=== PATIENT | male | born 1940 | race Caucasian/White ===

== ENCOUNTER 2018-06-22 10:24 | Emergency (ER) | payer MEDICARE, OTHER, SELFPAY ==
[2018-06-22 10:36] VITALS: BP 158/74; PULSE 64; RESP 16; TEMP 37.1; O2SAT 97
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
[2018-06-22 11:46] VITALS: BP 158/74; PULSE 64; RESP 16; TEMP 37.1; O2SAT 97
== END 2018-06-22 11:48 | disposition home or self-care (01) ==
LOC: ER 08-25 12:28
PROVIDERS: Emergency Provider Emergency Medicine; PCP Nurse Practitioner
DX: S40.012A Contusion of left shoulder, initial encounter (principal); V43.52XA Car driver injured in collision with other type car in traffic accident, initial encounter; I10 Essential (primary) hypertension
CPT/HCPCS: 73030; 99282; 99283

== ENCOUNTER 2018-07-29 00:23 | Outpatient (CLI) | payer MEDICARE, OTHER, SELFPAY ==
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
== END 2018-07-29 00:43 ==
PROVIDERS: PCP Nurse Practitioner; Visit Provider Nurse Practitioner
DX: R07.81 Pleurodynia (principal)
CPT/HCPCS: 71101

== ENCOUNTER → 2018-09-21 10:05 | Outpatient (BNVA) | payer MEDICARE, OTHER, SELFPAY | PROVIDERS: PCP Nurse Practitioner; Visit Provider Psychiatry & Neurology Neurology | DX: M48.061 Spinal stenosis, lumbar region without neurogenic claudication (principal); I10 Essential (primary) hypertension; R20.8 Other disturbances of skin sensation | CPT/HCPCS: 95885; 95909; 99205; 99215 ==

== ENCOUNTER 2019-04-07 08:24 | Outpatient (CLI) | payer MEDICARE, OTHER, SELFPAY ==
[2019-04-07 08:50] LABS: HCT 47.2 % (40.0-50.0); HGB 15.9 g/dL (13.5-17.5); Mean Corp. HGB Concentration 33.7 g/dL (32.0-36.0); Mean Corpuscular Hemoglobin 30.8 pg (27.0-33.0); Mean Corpuscular Volume 91.5 fL (80-95); Mean Platelet Volume 10.2 fL (8.0-11.0); Platelet Count 243 x1000/uL (130-400); RBC 5.16 m/cumm (4.50-6.00); RBC Distribution Width 13.6 % (11.8-14.1); White Blood Cell Count 5.41 k/cumm (4.4-10.8)
[2019-04-07 09:54] LABS: ALT 42 U/L (12-78); AST 25 U/L (15-37); Albumin 3.8 g/dL (3.4-5.0); Alkaline Phosphatase 66 U/L (46-116); Anion Gap 6.9 mmol/L (3-11); BUN 28 mg/dL (7-18); Bilirubin, Total 1.1 mg/dL (0.2-1.0); CO2 31.1 mmol/L (21.0-32.0); CREATININE 1.24 mg/dL (0.70-1.30); Calcium 8.8 mg/dL (8.5-10.1); Chloride 105 mmol/L (98-107); Cholesterol 119 mg/dL (50-200); Estimated GFR 56.24 (mL/min/1.73m2); Glucose 109 mg/dL (70-100); HDL Cholesterol 36 mg/dL (40-60); LDL CHOLESTEROL 65 mg/dL (<100); Potassium 5.5 mmol/L (3.5-5.1); Sodium 143 mmol/L (136-145); Total Protein 6.8 g/dL (6.4-8.2); Triglyceride 121 mg/dL (30-150)
== END 2019-04-07 08:44 ==
PROVIDERS: PCP Nurse Practitioner; Visit Provider Nurse Practitioner
DX: E78.5 Hyperlipidemia, unspecified (principal); I10 Essential (primary) hypertension; F32.9 Major depressive disorder, single episode, unspecified
CPT/HCPCS: 36415; 80053; 80061; 83721; 85027

== ENCOUNTER 2019-05-15 08:35 | Outpatient (CLI) | payer MEDICARE, OTHER, SELFPAY ==
[2019-05-15 10:25] LABS: Potassium 4.8 mmol/L (3.5-5.1)
== END 2019-05-15 08:55 ==
PROVIDERS: PCP Nurse Practitioner; Visit Provider Nurse Practitioner
DX: R79.89 Other specified abnormal findings of blood chemistry (principal)
CPT/HCPCS: 36415; 84132

== ENCOUNTER 2019-08-17 10:42 | Outpatient (CLI) | payer MEDICARE, OTHER, SELFPAY ==
[2019-08-17 12:49] LABS: ALT 39 U/L (16-63); AST 26 U/L (15-37); Albumin 3.8 g/dL (3.4-5.0); Alkaline Phosphatase 80 U/L (46-116); Anion Gap 6.9 mmol/L (3-11); BUN 20 mg/dL (7-18); Bilirubin, Total 1.1 mg/dL (0.2-1.0); CO2 31.1 mmol/L (21.0-32.0); CREATININE 1.25 mg/dL (0.70-1.30); Chloride 106 mmol/L (98-107); Estimated GFR 55.72 (mL/min/1.73m2); Glucose 101 mg/dL (70-100); Sodium 144 mmol/L (136-145); Total Protein 7.1 g/dL (6.4-8.2)
== END 2019-08-17 11:02 ==
PROVIDERS: PCP Nurse Practitioner; Visit Provider Nurse Practitioner
DX: I10 Essential (primary) hypertension (principal); I25.9 Chronic ischemic heart disease, unspecified
CPT/HCPCS: 36415; 80053

== ENCOUNTER 2019-09-05 07:49 | Outpatient (CLI) | payer MEDICARE, OTHER, SELFPAY | END 2019-09-05 08:09 | PROVIDERS: PCP Nurse Practitioner; Visit Provider Internal Medicine Cardiovascular Disease | DX: I25.10 Atherosclerotic heart disease of native coronary artery without angina pectoris (principal); Z95.5 Presence of coronary angioplasty implant and graft; I10 Essential (primary) hypertension; E78.5 Hyperlipidemia, unspecified | CPT/HCPCS: 99202; 99214; 93005; 93010 ==

== ENCOUNTER → 2019-09-28 09:10 | Outpatient (BNVA) | payer MEDICARE, OTHER, SELFPAY | PROVIDERS: PCP Nurse Practitioner; Referring Provider Nurse Practitioner; Visit Provider Internal Medicine Cardiovascular Disease | DX: I25.9 Chronic ischemic heart disease, unspecified (principal); I25.10 Atherosclerotic heart disease of native coronary artery without angina pectoris; I10 Essential (primary) hypertension | CPT/HCPCS: 99204; 99215 ==

== ENCOUNTER → 2020-01-08 10:44 | Outpatient (BNVA) | payer MEDICARE, OTHER, SELFPAY | PROVIDERS: PCP Nurse Practitioner; Referring Provider Nurse Practitioner; Visit Provider Internal Medicine Cardiovascular Disease | DX: I25.10 Atherosclerotic heart disease of native coronary artery without angina pectoris (principal); I10 Essential (primary) hypertension; Z79.899 Other long term (current) drug therapy | CPT/HCPCS: 99214 ==

== ENCOUNTER 2020-01-16 10:09 | Outpatient (CLI) | payer MEDICARE, OTHER, SELFPAY ==
[2020-01-16 11:38] LABS: Anion Gap 8.2 mmol/L (3-11); BUN 32 mg/dL (7-18); CO2 29.8 mmol/L (21.0-32.0); CREATININE 1.46 mg/dL (0.70-1.30); Calcium 7.9 mg/dL (8.5-10.1); Chloride 104 mmol/L (98-107); Estimated GFR 46.46 (mL/min/1.73m2); Glucose 124 mg/dL (74-106); Potassium 4.5 mmol/L (3.5-5.1); Sodium 142 mmol/L (136-145)
== END 2020-01-16 10:29 ==
PROVIDERS: PCP Nurse Practitioner; Visit Provider Internal Medicine Cardiovascular Disease
DX: I10 Essential (primary) hypertension (principal); Z79.899 Other long term (current) drug therapy
CPT/HCPCS: 36415; 80048

== ENCOUNTER → 2020-04-09 11:19 | Outpatient (BNVA) | payer MEDICARE, OTHER, SELFPAY | PROVIDERS: PCP Nurse Practitioner; Referring Provider Nurse Practitioner; Visit Provider Internal Medicine Cardiovascular Disease | DX: I25.9 Chronic ischemic heart disease, unspecified (principal); I10 Essential (primary) hypertension; E78.5 Hyperlipidemia, unspecified | CPT/HCPCS: 99214 ==

== ENCOUNTER → 2020-07-09 09:54 | Outpatient (BNVA) | payer MEDICARE, OTHER, SELFPAY | PROVIDERS: PCP Nurse Practitioner; Referring Provider Nurse Practitioner; Visit Provider Internal Medicine Cardiovascular Disease | DX: I25.9 Chronic ischemic heart disease, unspecified (principal); E78.5 Hyperlipidemia, unspecified; I10 Essential (primary) hypertension; Z95.818 Presence of other cardiac implants and grafts | CPT/HCPCS: 99213 ==

== ENCOUNTER 2021-01-02 03:23 | Outpatient (CLI) | payer MEDICARE, OTHER, SELFPAY ==
[2021-01-02 11:41] LABS: ALT 38 U/L (16-63); AST 22 U/L (15-37); Albumin 3.7 g/dL (3.4-5.0); Alkaline Phosphatase 72 U/L (46-116); BUN 30 mg/dL (7-18); Bilirubin, Total 0.9 mg/dL (0.2-1.0); CREATININE 1.5 mg/dL (0.70-1.30); Calcium 8.8 mg/dL (8.5-10.1); Calculated LDL 55 mg/dL (<100); Chloride 104 mmol/L (98-107); Cholesterol 129 mg/dL (<200); Estimated GFR 44.92 (mL/min/1.73m2); Glucose 83 mg/dL (74-106); HDL Cholesterol 37 mg/dL (40-60); Potassium 4.4 mmol/L (3.5-5.1); Sodium 143 mmol/L (136-145); Total Protein 7.1 g/dL (6.4-8.2); Triglyceride 185 mg/dL (<150)
== END 2021-01-02 03:24 | disposition home or self-care (01) ==
PROVIDERS: PCP Nurse Practitioner; Visit Provider Nurse Practitioner
DX: I10 Essential (primary) hypertension (principal); E78.5 Hyperlipidemia, unspecified; I25.9 Chronic ischemic heart disease, unspecified
CPT/HCPCS: 36415; 80053; 80061

== ENCOUNTER → 2021-01-06 10:57 | Outpatient (BNVA) | payer MEDICARE, OTHER, SELFPAY | PROVIDERS: PCP Nurse Practitioner; Referring Provider Nurse Practitioner; Visit Provider Internal Medicine Cardiovascular Disease | DX: I25.10 Atherosclerotic heart disease of native coronary artery without angina pectoris (principal); R06.02 Shortness of breath; E78.5 Hyperlipidemia, unspecified; I25.9 Chronic ischemic heart disease, unspecified; I10 Essential (primary) hypertension | CPT/HCPCS: 99214 ==

== ENCOUNTER 2021-01-06 12:15 | Outpatient (CLI) | payer MEDICARE, OTHER, SELFPAY ==
--- NOTE | 2021-01-21 15:08 | W.ZIOMONITOR ---
Date of service: 01/21/21 Time of Service: 15:08 14 Day Wafer Fabricator Referring Provider:: Shayy Poon Indications:: Shortness of breath Note: This is a 14-day monitor. Predominant rhythm was sinus with an average heart rate of 57. Minimum was 41, maximum 123 There were rare ventricular ectopic beats There were occasional atrial premature beats, rare atrial pairs. There was one 3 beat atrial run There was no atrial fibrillation, no high-grade AV block, no pauses greater than 3 seconds Patient triggered events corresponded to sinus rhythm and sinus bradycardia
== END 2021-01-06 12:16 | disposition home or self-care (01) ==
PROVIDERS: PCP Nurse Practitioner; Visit Provider Internal Medicine Cardiovascular Disease
DX: I25.10 Atherosclerotic heart disease of native coronary artery without angina pectoris (principal); R06.02 Shortness of breath; E78.5 Hyperlipidemia, unspecified; I25.9 Chronic ischemic heart disease, unspecified; I10 Essential (primary) hypertension
CPT/HCPCS: 93246; 99214

== ENCOUNTER 2021-01-21 15:08 | Outpatient (CLI) | payer MEDICARE, OTHER, SELFPAY | END 2021-01-21 15:09 | LOC: CARDO 01-22 10:26 | PROVIDERS: PCP Nurse Practitioner; Referring Provider Nurse Practitioner; Visit Provider Internal Medicine Cardiovascular Disease | DX: R06.02 Shortness of breath (principal); I49.3 Ventricular premature depolarization; I49.1 Atrial premature depolarization | CPT/HCPCS: 93248 ==

== ENCOUNTER → 2021-02-11 10:43 | Outpatient (BNVA) | payer MEDICARE, OTHER, SELFPAY | PROVIDERS: PCP Nurse Practitioner; Referring Provider Nurse Practitioner; Visit Provider Internal Medicine Cardiovascular Disease | DX: I10 Essential (primary) hypertension (principal); I25.10 Atherosclerotic heart disease of native coronary artery without angina pectoris; Z79.82 Long term (current) use of aspirin; R06.02 Shortness of breath | CPT/HCPCS: 99214 ==

== ENCOUNTER 2021-02-17 01:48 | Outpatient (CLI) | payer MEDICARE, OTHER, SELFPAY ==
--- NOTE | 2021-02-17 07:30 | DI.NM_ITS ---
APPROVED REPORT Exam: Pharmacologic Patient Location: Out-Patient Room/Bed: Stress Nurse: Francisca Sheffield RN Ordering Provider:WILLIAM MARES, Contact Number: [phone] BMI: 28.43 Baseline Rhythm: Sinus Bradycardia Comment: Minimal ST elevation leads V1-V4 Indications: Shortness of breath with exertion, chronic ischemic heart disease. Medical History Medical History: CAD, depression, gerd, hyperlipidemia, anxiety, hypertension, sob Cardiac Medications: simvastatin, lisinopril, hydrochlorothiazide, aspirin, carvedilol Allergies: Atrovastatin, penicillins Cardiac Risk Factors: Hypertension, hyperlipidemia, smoker (former), CVD, family hx Previous Cardiac Procedures: PCI w/ JOSE ELIAS Pretest Chest Pain Characteristics: None Exercise History: Sedentary Physical Disabilities: Legs and gait Lung Sounds: Clear to auscultation Heart Sounds: Regular Stress Test Details Test: Pharmacologic stress testing performed using 0.4 mg of regadenoson per 5 mL given IV over 10 s econds. Reason for pharmacologic stress test: physical limitation. Nuclear Acquisition: Rest Tc-99m/Stress Tc-99m 1 day Rest Isotope: Tc-99m Sestamibi. Dose: 10.2 Date: 02/17/2021 Injection Time: 0850 Stress Isotope: Tc-99m Sestamibi. Dose: 32.0 Date: 02/17/2021 Injection Time: 1012 HR Resting HR Supine: 47 bpm Max Heart Rate (APMHR): 139 bpm Target HR (85% APMHR): 118 bpm Max HR Achieved: 85 bpm % of APMHR: 61 Recovery HR: 62 bpm Comment: Carvedilol held for 24 hrs BP Resting BP Supine: 138/70 mmHg Max BP: 144/72 mmHg Recovery BP: 136/74 mmHg ECG Resting ECG: Sinus Bradycardia Ectopy: None Comment: Minimal ST elevation leads V1-V4 Stress ECG: Sinus Rhythm ST Change: Minimal ST elevation leads V1-V4 Arrhythmia: Frequent PACs Recovery ECG: Sinus Rhythm Recovery ST Change: Minimal ST elevation leads V1-V4 Clinical Stress Symptoms: Headache Rate Pressure Product: [id number] Stress ECG Conclusion 1. Resting electrocardiogram showed left anterior fascicular block, poor R wave progression 2. The patient underwent pharmacologic stress with regadenoson. Peak heart rate achieved was 62% of predicted 3. Electrocardiographically the test was nondiagnostic due to inadequate heart rate 4. Atrial premature beats were noted Stress Test Summary STAGE HR BP Symptoms NOTES Supine 47 138/70 1 min post Lexiscan injection 82 142/74 mild BALDERRAMA 3 min post Lexiscan injection 70 144/72 6 min post Lexiscan injection 62 136/74 mild BALDERRAMA improving MPI Conclusion Normal myocardial perfusion without evidence of ischemia or prior infarction EF with stress 47% Radiologist Interpretation Radiologist Interpretation by: Adrian Nettles MD Interpretation Date/Time: 02/18/2021 12:55:15
[2021-02-17] MEDS: Regadenoson 0.4 MG/5 ML SYR IVP (10:08)
== END 2021-02-17 02:08 ==
PROVIDERS: PCP Nurse Practitioner; Visit Provider Internal Medicine Cardiovascular Disease
DX: R06.02 Shortness of breath (principal); I25.89 Other forms of chronic ischemic heart disease; I10 Essential (primary) hypertension; E78.5 Hyperlipidemia, unspecified; Z87.891 Personal history of nicotine dependence; Z82.49 Family history of ischemic heart disease and other diseases of the circulatory system; I44.4 Left anterior fascicular block; I49.1 Atrial premature depolarization
CPT/HCPCS: 78452; 93016; 93018; 93017; J2785

== ENCOUNTER 2021-02-28 03:56 | Outpatient (CLI) | payer MEDICARE, OTHER, SELFPAY ==
--- NOTE | 2021-02-28 10:03 | DI.US_ITS ---
APPROVED REPORT EXAM: Comprehensive 2D, Doppler, and color-flow Echocardiogram Patient Location: Out-Patient Coat Finisher: Leeann Thompson RDCS (AE) Indications: Shortness of breath with exertion, Chronic ischemic heart disease Other Information Study Quality: Adequate Conclusion Normal left ventricular wall thickness and chamber size. Estimated ejection fraction is 60 to 65%. There are no segmental wall motion abnormalities Normal right ventricular size and systolic function Both atria are normal in size Trileaflet aortic valve without stenosis or regurgitation Mild mitral annular calcification. Trace mitral regurgitation Normal tricuspid valve with mild regurgitation. Estimated right ventricular systolic pressure is nor mal Normal pulmonic valve with mild regurgitation Mildly dilated ascending aorta measuring 3.6 cm Wall motion Left Ventricle The left ventricle is normal size. The left ventricular systolic function is normal. The left ventric ular ejection fraction is within the normal range. There is normal left ventricular wall thickness. T here is normal LV segmental wall motion. There is no ventricular septal defect visualized. Left ventr icular thrombus is present. LVEF is 60-65%. Right Ventricle The right ventricle is normal size. The right ventricular systolic function is normal. The RVSP is 24 .2mmHg. Atria The left atrium size is normal. The right atrium size is normal. The interatrial septum is intact wit h no evidence for an atrial septal defect. Aortic Valve The aortic valve is normal in structure. Aortic valve is trileaflet. There is no aortic valvular sten osis. No aortic regurgitation is present. Mitral Valve Mild mitral annular calcification. No evidence of mitral valve stenosis. Trace mitral regurgitation. Tricuspid Valve The tricuspid valve is normal in structure. There is no tricuspid valve stenosis. Mild tricuspid regu rgitation. Pulmonic Valve The pulmonary valve is normal in structure. There is no pulmonic valvular stenosis. Mild pulmonic reg urgitation. Great Vessels The aortic root is normal in size. The ascending aorta is mildly dilated. Aortic arch is not well vi sualized. IVC is normal in size and collapses >50% with inspiration. Pericardium There is no pericardial effusion. 2D Dimensions IVSD d PLAX 1.00 cm M: 0.6-1.2 LV Vol A2C d MOD 114.5 mL LVPW d PLAX 1.01 cm M: 0.6 - 1.2 LV Vol A4C d MOD 108.1 mL LVID d PLAX 4.42 cm M: 4.2 - 5.8 LA vol/ BSA A2C s A-L 22.6 mL/m2 LVDs 2.85 cm M: 2.5 - 4.0 LA vol/ BSA A4C s A-L 19.3 mL/m2 Ao Root d 3.50 cm M: 3.1 - 3.7 LA Vol/ BSA Biplane s A-L 22.3 mL/m2 RA Area A4C 14.09 cm2 LA Area A4C s MOD 15.58 cm2 RA Vol/ BSA A4C s A-L 16.4 mL/m2 LA Area A2C s MOD 17.96 cm2 Ao Asc Diam d 3.60 cm M: 2.6 - 3.4 LV EF A4C MOD 61.2 % LV EF Teichholz 64.4 % LV EF A2C MOD 64.3 % LVEF (La's) 60.58 % M: 52 - 72 LV EF Biplane MOD 60.6 % LV Volume 82.67 mL M: 62 - 150 SV 67.29 mL LV Volume Index 40.52 mL/m2 M: 34 - 74 SV Index 32.88 mL/m2 LV Vol Biplane MOD 111.1 mL FS 34.90 % M-Mode TAPSE 2.52 cm (M/F) >1.7 LV Diastology MV E' medial 0.067 (>0.07 m/s) E/A Ratio 0.8 LV E/e MED 9.50 (<14) MV E Vmax 0.64 (0.4-1.3 m/s) MV E' lateral 0.104 (>0.1 m/s) MV A Vmax 0.85 (0.4-1.3 m/s) LV E/e LAT 6.05 (<14) MV E/A Ratio 0.74 MV E/E' medial 9.51 MV E/E' lateral 6.09 Aortic Valve LVOT Area 3.02 cm2 AoV Area Vmax 2.10 cm2 LVOT Vmax 0.94 m/s AoV Area/ BSA (Vmax) 1.03 cm2/m2 LVOT Mean Tarun. 0.57 m/s TISH Mean Tarun. 2.00 cm2 LVOT Peak Grad 3.6 mmHg TISH Mean Tarun. Index 0.98 cm2/m2 LVOT Mean Grad 1.6 mmHg LVOT VTI 0.233 m LVOT Diam s 1.95 cm AoV Vmax 1.36 m/s Velocity Ratio 0.69 AoV Mean Tarun. 0.86 m/s AoV Peak Grad 7.4 mmHg LVOT SV 70.37 mL AoV Mean Grad 3.5 mmHg AoV VTI 0.286 m AoV Area VTI 2.46 cm2 AoV Area/ BSA (VTI) 1.20 cm/m2 Mitral Valve MV DT 181 (160-240 msec) MV PHT 52 msec MV Area PHT 4.19 cm2 Pulmonary Valve PV Vmax 1.09 (0.5-1.5 m/s) RVOT Peak Gr. 1.13 mmHg PV Peak Grad 4.7 mmHg RVOT Mean Gr. 0.60 mmHg PV Mean Grad 2.3 mmHg RVOT VTI 0.136 m PV VTI 0.240 m RVOT Vmax 0.53 m/s Tricuspid Valve TR Peak Grad 21.2 mmHg TR Vmax 2.30 m/s RA Pressure 3.00 mmHg RVSP (TR) 24.2 mmHg
== END 2021-02-28 04:16 ==
PROVIDERS: PCP Nurse Practitioner; Visit Provider Internal Medicine Cardiovascular Disease
DX: I25.9 Chronic ischemic heart disease, unspecified (principal); R06.02 Shortness of breath; I37.1 Nonrheumatic pulmonary valve insufficiency; I07.1 Rheumatic tricuspid insufficiency
CPT/HCPCS: 93306

== ENCOUNTER → 2021-03-31 09:55 | Outpatient (BNVA) | payer MEDICARE, OTHER, SELFPAY | PROVIDERS: PCP Nurse Practitioner; Referring Provider Nurse Practitioner; Visit Provider Internal Medicine Cardiovascular Disease | DX: R06.02 Shortness of breath (principal); I10 Essential (primary) hypertension | CPT/HCPCS: 99214; 99213 ==

== ENCOUNTER 2021-08-04 12:57 | Emergency (ER) | payer MEDICARE, OTHER, SELFPAY ==
[2021-08-04] VITALS (46 sets, daily range): BP systolic 130–194; BP diastolic 52–150; PULSE 0–77; RESP 10–27; TEMP 36.8–37; O2SAT 94–100
--- NOTE | 2021-08-04 12:45 | RT.EKG_ITS ---
APPROVED REPORT Exam: Resting ECG Reason for Exam: bradycardia Patient Location: E HR:48 bpm ECG Measurements Heart Rate 48 AXIS PA 165 P 23 QRSd 107 QRS -44 QT 418 T 29 QTc 374 Conclusion Sinus bradycardia...rate< 60 Inferior infarct, old...Q >35mS, II III aVF I have reviewed and interpreted ECG and agree with software generated interpretation.
--- NOTE | 2021-08-04 13:05 | W.ED.GENAD ---
Discharge Plan Disposition Patient Disposition: HOME Condition: Improving Discharge Details Clinical Impression: Imbalance, Dizziness Primary Care Provider: Shayy Poon ED Provider: Edwina Messer Home Meds and New Rx's Prescriptions: Continued hydrochlorothiazide 25 mg tablet 25 mg PO DAILY Qty: 90 RF: 3 sodium chloride [Saline Mist] 0.65 % aerosol,spray 2 spray YUAN TID PRNRF: 0 carvedilol 12.5 mg tablet 12.5 mg PO BID Qty: 180 RF: 3 naproxen sodium 220 MG tablet 220 mg PO DAILY PRNRF: 0 fluticasone propionate 16 GM spray,suspension 1 spray NS DAILY PRNQty: 3 RF: 3 cyanocobalamin (vitamin B-12) [Vitamin B-12] 1,000 MCG tablet 1,000 mcg PO DAILY RF: 0 simvastatin 20 mg tablet 20 mg PO DAILY Qty: 90 RF: 3 lisinopril 40 mg tablet 40 mg PO DAILY Qty: 90 RF: 3 aspirin [Aspir-81] 81 MG tablet,delayed release (DR/EC) 81 mg PO DAILY RF: 0 Discharge Instructions Instructions: Dizziness (ED) Additional Instructions: Your labs and imaging as well as physical exam are reassuring here today. Your history is most consistent with vertigo. However, blood pressure is noted to be elevated as well and this could also be contributing. You are given your nighttime meds here this evening, please do not take the begin until tomorrow morning. Please call your primary care tomorrow, you will need to have your blood pressure rechecked and medications potentially changed. If you develop headache, fever/chills, recurrence of your symptoms or other new/worsening symptoms seek care urgently once again. Referrals: Shayy Poon, COLLISION REPAIR TECHNICIAN [Primary Care Provider] - Medical Decision Making Patient is a pleasant 80-year-old male presenting today with chief complaint of dizziness. He states that he woke this morning at 730 with vertiginous-like spinning of the room. States that he has not had symptoms like this Historically. However, he does report that yesterday he had more mild case of the same. Able to sounds that he was having difficulty focusing when reading a book. This has since resolved. Denies any headache. No nausea or vomiting. States that symptoms are maximal when he goes from sitting or lying to upright position or rapid movement of his head. He denies any shortness of breath. Denies chest pain or palpitations. Reports he has fatigue. No recent change in medication. Denies palpitations. Denies BALDERRAMA. No neck pain. Denies fevers/chills. Difficulty ambulating at baseline, uses cane. Has planned surgery at [facility] for back issues. Patient last seen by cardiology in March of this year. At that time, his hypertension was well controlled with hydrochlorothiazide, lisinopril and carvedilol. Also history also pertinent for CAD which is stable with aspirin beta-yonas. 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 No significant abnormalities noted on echocardiogram and MPI. Doppler was completed and January of this year. Echo was completed on 02/28/2021. Results at that time showed normal left ventricular thickness and chamber size with an EF of 65%. No segmental wall abnormalities. Normal systolic function of the right ventricle, normal atria mildly dilated ascending aorta measuring 3.6 cm. On exam, patient appears nontoxic. His heart rate is now in the 50s but this appears to be his baseline, typically in the 40s to 50s Dating back to 2016. He is hypertensive with a blood pressure of 189/52. He is denying any pain currently. He is not currently vertiginous or dizzy. No nystagnus. Aside from the bradycardia, cardiac patient is normal, lungs are clear. Normal abdominal exam with no pain elicited. Neurologic exam is intact. Intact CN. No nystagmus. No drift or weakness. His discription is most consistent with vertigo. However, he has not had this historically. Also considered central cause. Unable to elicit symptoms today for exam with symptoms. Considered CVA, metabolic abnormality, vs other. Will obtain CT, CTA, labs. Labs reviewed. No leukocytosis. Stable H&H. CMP significant for elevated creatinine of 1.4, but to be baseline for patient. His BUN is slightly elevated at 24, he is receiving some hydration that she appears to be at baseline. Troponin is less than 0.05. With the patient's cardiac history, I do feel that repeat troponin is warranted at this time. Urinalysis significant for trace blood but otherwise no evidence to suggest infection or acute abnormality. CTA neck and brain reviewed by radiologist, he advises no acute abnormalities. Radiologist did call back and advised that he concerns for densities in the upper apices of the lungs I did recommend a chest x-ray. Contacted by radiologist again, he advised no significant abnormalities on chest x-ray. Repeat troponin remains less than 0.05. Patient continues to be neurologically intact. His symptoms are vertiginous spinning with movement have resolved after meclizine. His history is consistent with vertigo. Patient was evaluated by Dr. Garcia. Feels that outpatient continued evaluation is appropriate. Patient does feel safe for discharge. His blood pressure continues to be slightly elevated. We will give him his nighttime meds now. Dr. Garcia advised that he take the carvedilol slightly earlier in the evening, patient typically takes this around 9 PM and then again when he wakes up in the morning. He advised to continue to monitor blood pressure and discuss further with primary care as changes to his blood pressure medication may be warranted. Patient will call primary care tomorrow morning to schedule close follow-up. Strict return precautions were discussed. All his questions and concerns were addressed and he is agreement with plan. HPI General Mode of arrival: EMS. Date/Time Provider Initiated Documentation: 08/04/21 13:04. Limitations to Documentation: no limitations. Information obtained by: patient, EMS, RN notes reviewed and old records reviewed. History of Present Illness 80 year old M presents to the emergency department with the chief complaint of room spinning, fatigue, described as moderate, Quality is described as other (intermittent, denies any pain), and is localized to the head. Patient reports no radiation. Patient started experiencing this day(s) (1, had mild symptoms yesterdya when reading a book) and it has been intermittent. Immobilization improves symptom(s), Movement worsens symptoms (worse with fast movements of his head) . Patient notes no other symptoms.; denies confusion, chest pain, cough, diaphoresis, fever/chills, headaches, loss of appetite, nausea/vomiting, rash, shortness of breath and syncope. Patient did receive the following treatments prior to arrival, none Related Data Home Medications Medication Instructions Recorded Confirmed naproxen sodium 220 mg PO DAILY PRN 01/30/13 08/04/21 fluticasone propionate 1 spray NS DAILY PRN #3 bottle 12/04/14 08/04/21 aspirin [Aspir-81] 81 mg PO DAILY 08/05/16 07/09/20 cyanocobalamin (vitamin B-12) 1,000 mcg PO DAILY 09/14/17 08/04/21 [Vitamin B-12] sodium chloride 0.65 % nasal spray 2 spray YUAN TID PRN ml 09/05/19 08/04/21 aerosol hydrochlorothiazide 25 mg tablet 25 mg PO DAILY #90 tab 07/09/20 08/04/21 carvedilol 12.5 mg tablet 12.5 mg PO BID #180 tab 01/06/21 08/04/21 lisinopril 40 mg tablet 40 mg PO DAILY #90 tab 01/06/21 08/04/21 simvastatin 20 mg tablet 20 mg PO DAILY #90 tab-cap 01/06/21 08/04/21 Previous Rx's Medication Instructions Recorded hydrochlorothiazide 25 mg tablet 25 mg PO DAILY #90 tab 07/09/20 carvedilol 12.5 mg tablet 12.5 mg PO BID #180 tab 01/06/21 lisinopril 40 mg tablet 40 mg PO DAILY #90 tab 01/06/21 simvastatin 20 mg tablet 20 mg PO DAILY #90 tab-cap 01/06/21 Allergies Allergy/AdvReac Type Severity Reaction Status Date / Time Penicillins Allergy Unknown many Verified 08/04/21 14:05 years ago atorvastatin AdvReac Intermediate widespread Verified 08/04/21 14:05 pain Review of Systems Constitutional Constitutional: Reports as per HPI, Denies chills, Reports fatigue, Denies fever(s), Denies headache(s) and Denies poor appetite Eyes Eyes: Denies change in vision ENT Ears, Nose, Mouth, and Throat: Reports dizziness (describes as room spinning) and Denies headache(s) Cardiovascular Cardiovascular: Reports as per HPI, Denies chest pain, Denies chest pain with activity, Denies diaphoresis, Denies syncope, Denies lightheadedness, Denies radiating jaw, neck or arm pain, Denies palpitations, Denies dyspnea and Denies dyspnea on exertion Respiratory Respiratory: Reports as per HPI, Denies chest congestion, Denies cough, Denies pain on inspiration, Denies pain with cough, Denies dyspnea and Denies dyspnea on exertion Gastrointestinal Gastrointestinal: Reports as per HPI, Denies abdominal pain, Denies diarrhea, Denies nausea and Denies vomiting Genitourinary Genitourinary: Denies system reviewed and no additional complaints, except as documented (denies change in urinary habits) Musculoskeletal Musculoskeletal: Reports as per HPI and Reports back pain (chronic, planning for surgical intervention at [facility]) Integumentary/Breasts Skin/Breast: Reports as per HPI and Denies rash Neurologic Neurologic: Reports as per HPI, Reports dizziness (describes as room spinning), Denies syncope and Denies headache(s) Endocrine Endocrine: Reports fatigue and Denies palpitations [facility] Medical History (Updated 08/04/21 @ 18:18 by FLAQUITO Liu) B12 deficiency (03/23/13) BPH w/o urinary obs/LUTS (01/26/12) Cholelithiasis without obstruction (01/26/12) Chronic ischemic heart disease, unspecified (01/26/12) hx ACS ?NM and stent [facility]; neg Holter 06/2014 Chronic rhinitis (01/26/12) Depressive disorder, not elsewhere classified (01/26/12) Essential hypertension, benign (08/28/13) Gastroesophageal reflux disease (01/26/12) Imbalance (02/27/16) Low back pain (05/24/13) xray 05/2013 neg DJD; chiropractor Rx MRI 06/01/16 disc herniation L2-3; spinal stenosis L3-4; Dr Burks [facility] Lumbar stenosis without neurogenic claudication Memory loss (03/23/13) 2012 MMSE Other and unspecified hyperlipidemia (01/26/12) CAD; LDL baseline 151 Surgical History Appendectomy Cholecystectomy Tonsillectomy and adenoidectomy Family History Mother , [place] at age 82. Essential hypertension Heart disease [place] Father , unknown at age 40. No problems noted. 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 Working smoke detector in home: Yes Carbon monox detector in home: Yes Do you feel safe in your relationship?: Yes Exam Const General: cooperative, healthy appearing, comfortable, no acute distress and well developed Nutritional Appearance: average body habitus and well nourished Orientation: alert, awake and oriented x3 HENMT Head: normal to inspection Ears: hearing grossly normal bilaterally Mouth: moist mucous membranes Eyes General: appearance normal, both eyes and all related structures Visual Mendoza: normal visual mendoza by confrontation Alignment and Position: alignment normal and position normal Pupils: PERRL and normal by confrontation EOM: EOM intact bilaterally and No nystagmus Resp Effort & Inspection: normal respiratory effort, able to speak in complete sentences and no respiratory distress Auscultation: clear to auscultation bilaterally, no rales, no rhonchi and no wheezes Cardio Rate: regular rate Rhythm: regular rhythm Heart Sounds: S1 normal and S2 normal GI Inspection: normal to inspection, no edema and non-distended Palpation: soft, no hepatosplenomegaly, not firm, no guarding, not rigid and nontender Auscultation: normal bowel sounds Skin General skin exam: no rashes or lesions noted Trauma: no lacerations or abrasions Neuro General: patient alert, patient awake and patient oriented x3 Cranial Nerves: CN's II-XI intact bilaterally and no nystagmus Cognition: normal cognition Speech: speech normal Gait: normal gait (ambulates with a cane at baseline) Motor: muscle tone normal throughout, strength 5/5 throughout, no pronator drift, no movement abnormalities noted and no fasciculations Sensory Exam: no sensory deficits noted Coordination: [id number] test normal, [id number] test normal and Romberg test normal Extrem General: normal to inspection, capillary refill normal, no pedal edema, no calf tenderness and normal gait Psych Appearance: grossly normal and well kempt Mental Status: mental status grossly normal Speech and Movement: speech and movement normal
[2021-08-04 13:36] LABS: Abs Immature Grans 0.01 10^3/uL (0.0-0.06); Absolute Basophil Count 0.04 10^3/uL (0.0-0.2); Absolute Eosinophil Count 0.25 10^3/uL (0.0-0.7); Absolute Lymphocyte Count 1.27 10^3/uL (1.2-3.4); Absolute Monocyte Count 0.44 10^3/uL (0.1-0.8); Absolute Neutrophil Count 4.34 10^3/uL (1.2-6.7); Basophils % 0.6; Eosinophils % 3.9; HCT 48.3 % (40.0-50.0); Immature Grans % 0.2; MCH 30.5 pg (27.0-33.0); MCHC 33.1 % (32.0-36.0); MPV 10.1 fL (8.0-11.0); Monocytes % 6.9; Neutrophils % 68.4; Nucleated RBC 0 %; Platelet Count 264 10^3/uL (130-400); RBC 5.25 10^6/uL (4.36-5.78); RDW 13.1 % (11.8-14.1); RDW-SD 43.8 fL; WBC 6.35 10^3/uL (4.4-10.8)
[2021-08-04] MEDS: Normal Saline 1,000 ML 150 ML IV (13:36)
[2021-08-04] MEDS: Normal Saline Flush 10 ML SYR IVP (13:36)
[2021-08-04 14:05] LABS: Bilirubin Negative (Negative); Blood Trace-lysed (Negative); Clarity Clear (Clear); Glucose Negative (Negative); Ketones Negative (Negative); Leukocyte Esterase Negative (Negative); Nitrite Negative (Negative); Urobilinogen 0.2 EU/dL (Up TO 0.2); pH 6.5 (5-8)
[2021-08-04 14:09] LABS: ALT 34 U/L (16-63); AST 20 U/L (15-37); Alkaline Phosphatase 77 U/L (46-116); Anion Gap 7.4 mmol/L (3-11); BUN 24 mg/dL (7-18); CO2 28.6 mmol/L (21.0-32.0); CREATININE 1.4 mg/dL (0.70-1.30); Chloride 105 mmol/L (98-107); Estimated GFR 48.64 (mL/min/1.73m2); Glucose 120 mg/dL (74-106); Magnesium 2.4 mg/dL (1.8-2.4); Potassium 4.1 mmol/L (3.5-5.1); Sodium 141 mmol/L (136-145); TSH 2.34 uIU/mL (0.36-3.74)
[2021-08-04 14:10] LABS: Troponin I < 0.05 ng/mL (<0.06)
[2021-08-04 14:13] LABS: Bacteria Negative HPF (Negative); Casts Negative LPF (Negative); Crystals Negative HPF (Negative); Epithelial Cells Rare HPF (Negative); Mucus Negative (Negative); RBC 0-2 HPF (0-2); WBC 0-2 HPF (0-5)
[2021-08-04 14:14] LABS: C & S Indicated? No
[2021-08-04] MEDS: Omnipaque 350 MG/ML 100 ML BTL 85 ML IJ (14:37)
[2021-08-04] MEDS: Normal Saline - Diluent 50 ML VIAL IV (14:38)
--- NOTE | 2021-08-04 14:45 | DI.CT_ITS ---
Exam(s) CT BRAIN NECK CTA EXAM: CT BRAIN NECK CTA CLINICAL HISTORY: dizziness. TECHNIQUE: Imaging Protocol: Axial CT angiography was performed with multi-slice acquisition and mu lti-planar and/or 3D reconstructions. CONTRAST MATERIAL: Intravenous: Omnipaque 350 Contrast volume:structured data in ml COMPARISON: No exams were available for comparison FINDINGS: CTA Neck W: Although there is some respiratory motion here, there appear to be is possible subtle ground-glass in filtrates in both upper lobes. Aortic arch anatomy: The aortic arch anatomy is conventional. Anterior circulation:No significant stenosis at the origin of the carotid arteries. Both common turcios tid arteries ascend with normal luminal diameters. There is no significant plaque nor stenosis eviden t at the carotid bifurcations nor within the proximal internal carotid arteries and the internal turcios tid arteries are patent albeit somewhat tortuous in the upper neck. They are patent in the skull bas e. Posterior circulation: Both vertebral arteries originated conventional fashion off of the subclavian arteries. No stenosis at their origins. Both vertebral arteries ascend with equal luminal diameters in the foramen transve rse area with no evidence of intraluminal thrombus nor dissection. Both vertebral arteries contribut e to the formation of the basilar artery at the skull base. CTA Brain W: Anterior circulation: Both internal carotid arteries are patent in the skull base and cavernous sinuses as well as are supr aclinoid aspects. Both middle cerebral arteries are patent. Both A1 segments are patent. Both ante rior cerebral arteries are patent. There is no aneurysm at the level of the anterior communicating a rtery. Posterior circulation: Basilar artery ascends in the midline with normal luminal diameter. Distally it gives off bilateral superior cerebellar arteries. There is a focal stenosis in the right superior cerebellar artery 4 mi llimeters distal to its origin. Vessel beyond this is opacified. Terminates as patent right posteri or cerebral artery. The left posterior cerebral artery receives its flow from posterior communicatin g artery on the left side of the enharj-ag-Ygmeiv. There is no aneurysm of the tip of the basilar ar jasmina. CT BRAIN: There is no evidence of intracranial hemorrhage, mass effect, or shift of midline structures. There are no extra-axial fluid collections. Ventricles are not enlarged or shifted. There are no ring enh ancing lesions in the brain and no abnormal meningeal enhancement. Visualized paranasal sinuses are clear. No significant orbital findings. IMPRESSION: 1. Patent carotid and vertebral arteries in the neck . No significant atherosclerotic narrowing. No dissection. 2. Patent intracranial arteries. However, there is a moderate focal stenosis evident just distal to the origin of the right superior cerebellar artery. 3. No evidence of obvious ischemic infarct. No hemorrhage. No ring enhancing lesions in the brain . No abnormal meningeal enhancement. Incidentally noted are increased markings in both upper lobes, probably exaggerated by respiratory mo tion artifact here. However, not excluded pneumonitis. Multilevel degenerative changes in the cervical spine including degenerative anterolisthesis of C7 up on T1. RADIATION DOSE DELIVERED: 2,078.69mGy.cm Total DLP DATA REPOSITORY: All CT scans at this facility are submitted to the National Radiology Data Registry (NRDR) Dose Index Registry (DIR) with the [employer] (ACR). RADIATION OPTIMIZATION: All CT scans at this facility use at least one of these dose optimization te chniques: automated exposure control; mA and/or kV adjustment per patient size (includes targeted exa ms where dose is matched to clinical indication); or iterative reconstruction.
[2021-08-04] MEDS: Meclizine 25 MG TAB PO (16:13)
--- NOTE | 2021-08-04 16:45 | DI.RAD_ITS ---
Exam(s) XR PORTABLE CHEST AP EXAM: XR PORTABLE CHEST AP CLINICAL HISTORY: dizziness. TECHNIQUE: 2D digital imaging was performed. COMPARISON: CR XR ribs LT PA chest 3V from 07/29/2018 FINDINGS: Heart size is upper normal. The mediastinum is not widened. Lungs are clear. No infiltrates nor obvious pleural effusions. Density in the right upper lobe region is unchanged from July 2018 and corresponds to 1st costoc hondral junction. IMPRESSION: No acute pulmonary findings on this single AP portable view of the chest. DATA REPOSITORY: RADIATION DOSE DELIVERED: All CT scans at this facility use at least one of these dose optimization techniques: automated exposure control; mA and/or kV adjustment per patient size (includes targeted e xams where dose is matched to clinical indication); or iterative reconstruction.
[2021-08-04 17:06] LABS: Troponin I < 0.05 ng/mL (<0.06)
--- NOTE | 2021-08-04 17:40 | DI.VRAD_ITS ---
PROCEDURE INFORMATION: Exam: XR Chest Exam date and time: 08/04/2021 4:58 PM Age: 80 years old Clinical indication: Other: Dizziness TECHNIQUE: Imaging protocol: XR of the chest. Views: 1 view. COMPARISON: CR XR ribs LT PA chest 3V 07/29/2018 9:05 AM FINDINGS: Lungs: Unremarkable. No consolidation. Pleural spaces: Unremarkable. No pleural effusion. No pneumothorax. Heart/Mediastinum: Unremarkable. No cardiomegaly. Vasculature: Aortic calcifications. 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 IMPRESSION: No acute findings Dictated and Authenticated by: Morena Acosta MD. Ordering:DIANA Bland MD
[2021-08-04] MEDS: Simvastatin 20 MG TAB PO (18:45)
[2021-08-04] MEDS: Carvedilol 12.5 MG TAB PO (18:45)
== END 2021-08-04 18:53 | disposition home or self-care (01) ==
PROVIDERS: Emergency Provider Physician Assistant; PCP Nurse Practitioner
DX: R42 Dizziness and giddiness (principal); R26.89 Other abnormalities of gait and mobility; I10 Essential (primary) hypertension; R00.1 Bradycardia, unspecified
CPT/HCPCS: 36415; 70496; 70498; 80053; 93005; 96360; 96361; 99285; 71045; 81003; 81015; 83735; 84443; 84484; 85025; 93010; J3490

== ENCOUNTER 2021-08-06 10:52 | Outpatient (REF) | payer MEDICARE, OTHER, SELFPAY ==
[2021-08-07 12:27] LABS: COVID-19 RT-PCR UVMMC Result Negative (Negative)
== END 2021-08-06 10:53 | disposition home or self-care (01) ==
LOC: LBN 10:52
PROVIDERS: PCP Nurse Practitioner; Visit Provider Nurse Practitioner
DX: Z20.822 Contact with and (suspected) exposure to COVID-19 (principal); R05 Cough; R06.2 Wheezing
CPT/HCPCS: U0003; U0005

== ENCOUNTER 2021-08-25 03:12 | Outpatient (CLI) | payer MEDICARE, OTHER, SELFPAY ==
[2021-08-25] MEDS: Albuterol HFA 18 GM 200 PUFF INH IH (14:29)
[2021-08-25] MEDS: Inhaler, Assist Device 1 EACH MC (14:30)
--- NOTE | 2021-08-26 17:23 | W.PFT ---
Date of service: 08/25/21 Time of Service: 13:48 Pulmonary Function Test Result Requesting Provider Shayy Poon Indications: Dyspnea on exertion Interpretation Spirometry: There is no airflow limitation. The forced vital capacity is reduced. There is not a significant bronchodilator effect. Lung Volumes: There is mild restrictive lung disease. Diffusion Capacity: The diffusion is normal. Airway Pressure: Airways resistance is normal. Impression There is mild restrictive lung disease with no sign of airflow obstruction. Clinical Correlation therefore is recommended.
== END 2021-08-25 03:13 | disposition home or self-care (01) ==
LOC: RT 03:12
PROVIDERS: PCP Nurse Practitioner; Visit Provider Nurse Practitioner
DX: R06.09 Other forms of dyspnea (principal); Z87.891 Personal history of nicotine dependence; J98.4 Other disorders of lung
CPT/HCPCS: 94060; 94726; 94729

== ENCOUNTER 2021-09-03 02:45 | Outpatient (CLI) | payer MEDICARE, OTHER, SELFPAY ==
--- NOTE | 2021-09-03 15:15 | DI.CT_ITS ---
Exam(s) CT CHEST WO EXAM: CT CHEST WO CLINICAL HISTORY: Persistent BAUTISTA for six mos. Cardiology eval neg.,SOB,R06.02,R06.00. TECHNIQUE: Multi planar reconstructions were performed. CONTRAST MATERIAL: None COMPARISON: CR,XR XR PORTABLE CHEST AP from 08/04/2021 FINDINGS: CHEST: LUNGS: Mild increased markings in the medial segment of the right middle lobe-mild infiltrate. No ot her significant focal findings in the right lung. No significant focal findings in the left lung. N o pleural effusions. No significant focal findings in the trachea and mainstem bronchi. MEDIASTINUM: There is no obvious hilar nor mediastinal adenopathy. Visualized thyroid unremarkable.No obvious axillary adenopathy CARDIAC: Heart size is normal. There is no pericardial effusion.Caliber of the thoracic aorta is wit hin normal limits. VISUALIZED UPPER ABDOMEN: No adrenal masses. Gallbladder surgically absent. No splenomegaly. OSSEOUS: No significant osseous lesions.. IMPRESSION: 1. Mild infiltrate in the right middle lobe medial segment. No other significant focal findings in e ither lung field. 2. There are no pleural effusions. There is no intrathoracic adenopathy RADIATION DOSE DELIVERED: 646.61mGy.cm Total DLP DATA REPOSITORY: All CT scans at this facility are submitted to the National Radiology Data Registry (NRDR) Dose Index Registry (DIR) with the [employer] (ACR). RADIATION OPTIMIZATION: All CT scans at this facility use at least one of these dose optimization te chniques: automated exposure control; mA and/or kV adjustment per patient size (includes targeted exa ms where dose is matched to clinical indication); or iterative reconstruction.
== END 2021-09-03 03:05 ==
PROVIDERS: PCP Nurse Practitioner; Visit Provider Nurse Practitioner
DX: R06.09 Other forms of dyspnea (principal); R06.02 Shortness of breath; R91.8 Other nonspecific abnormal finding of lung field
CPT/HCPCS: 71250

== ENCOUNTER → 2021-09-29 10:30 | Outpatient (BNVA) | payer MEDICARE, OTHER, SELFPAY | PROVIDERS: PCP Nurse Practitioner; Referring Provider Nurse Practitioner; Visit Provider Internal Medicine Cardiovascular Disease | DX: R06.02 Shortness of breath (principal); I10 Essential (primary) hypertension; E78.5 Hyperlipidemia, unspecified | CPT/HCPCS: 99214; 99213 ==

== ENCOUNTER 2021-11-05 00:45 | Outpatient (CLI) | payer MEDICARE, OTHER, SELFPAY ==
[2021-11-05] MEDS: Inhaler, Assist Device 1 EACH MC (15:01)
[2021-11-05] MEDS: Albuterol HFA 18 GM 200 PUFF INH IH (15:01)
[2021-11-05] MEDS: Methacholine 100 MG VIAL IH (15:01)
--- NOTE | 2021-11-05 15:58 | W.PFT ---
Date of service: 11/05/21 Time of Service: 13:04 Pulmonary Function Test Result Requesting Provider Edyta Indications: Dyspnea on exertion Interpretation Spirometry: No baseline airflow limitaiton. Negative methacholine challenge test (13% decrease with 16 mg/mL methacholine) Impression Negative methacholine challenge test Clinical Correlation therefore is recommended.
--- NOTE | 2021-11-05 16:02 | W.PFT ---
Date of service: 11/05/21 Time of Service: 13:04 Pulmonary Function Test Result Requesting Provider Duchene Indications: Dyspnea Interpretation Spirometry: No airflow limitaiton. MIP is normal. MEP is reduced. MVV is normal. Impression Normal spirometry with a moderately reduced MEP. Clinical Correlation therefore is recommended.
== END 2021-11-05 00:46 | disposition home or self-care (01) ==
PROVIDERS: PCP Nurse Practitioner; Visit Provider Student in an Organized Health Care Education/Training Program
DX: R06.09 Other forms of dyspnea (principal); R94.2 Abnormal results of pulmonary function studies
CPT/HCPCS: 94060; 95070; J7674

== ENCOUNTER 2022-04-10 08:11 | Outpatient (CLI) | payer MEDICARE, OTHER, SELFPAY ==
--- NOTE | 2022-04-10 08:00 | RT.EKG_ITS ---
APPROVED REPORT Exam: Resting ECG Reason for Exam: BAUTISTA Patient Location: O HR:50 bpm ECG Measurements Heart Rate 50 AXIS ID 156 P 14 QRSd 90 QRS -37 QT 411 T 31 QTc 375 Conclusion Sinus rhythm...normal P axis, V-rate 50- 99 Abnormal R-wave progression, late transition...QRS area<0 in V5/V6 Inferior infarct, old...Q >35mS, II III aVF Baseline wander in lead(s) V6
== END 2022-04-10 08:12 | disposition home or self-care (01) ==
LOC: DI.CARD 08:12
PROVIDERS: PCP Nurse Practitioner; Visit Provider Internal Medicine Cardiovascular Disease
DX: R06.00 Dyspnea, unspecified (principal); R06.02 Shortness of breath
CPT/HCPCS: 93010

== ENCOUNTER → 2022-04-10 09:13 | Outpatient (BNVA) | payer MEDICARE, OTHER, SELFPAY | PROVIDERS: PCP Nurse Practitioner; Referring Provider Nurse Practitioner; Visit Provider Internal Medicine Cardiovascular Disease | DX: I25.9 Chronic ischemic heart disease, unspecified (principal); I10 Essential (primary) hypertension; M48.061 Spinal stenosis, lumbar region without neurogenic claudication | CPT/HCPCS: 93005; 99214; 99213 ==

== ENCOUNTER 2022-05-15 02:27 | Outpatient (CLI) | payer MEDICARE, OTHER, SELFPAY ==
[2022-05-15 12:59] LABS: HCT 46.5 % (40.0-50.0); HGB 15.4 g/dL (13.5-17.5); MCH 30.1 pg (27.0-33.0); MCHC 33.1 % (32.0-36.0); MCV 91 fL (80-95); MPV 9.6 fL (8.0-11.0); Platelet Count 240 10^3/uL (130-400); RBC 5.12 10^6/uL (4.36-5.78); RDW 13.3 % (11.8-14.1); RDW-SD 43.6 fL; WBC 5.48 10^3/uL (4.4-10.8)
[2022-05-15 14:19] LABS: ALT 36 U/L (16-63); AST 22 U/L (15-37); Albumin 3.8 g/dL (3.4-5.0); Alkaline Phosphatase 63 U/L (46-116); Anion Gap 8.9 mmol/L (3-11); BUN 31 mg/dL (7-18); Bilirubin, Total 1.1 mg/dL (0.2-1.0); CO2 28.1 mmol/L (21.0-32.0); CREATININE 1.5 mg/dL (0.70-1.30); Calcium 8.4 mg/dL (8.5-10.1); Calculated LDL 56 mg/dL (<100); Chloride 102 mmol/L (98-107); Cholesterol 122 mg/dL (<200); Estimated GFR 44.81 (mL/min/1.73m2); Glucose 103 mg/dL (74-106); HDL Cholesterol 37 mg/dL (40-60); Potassium 4.5 mmol/L (3.5-5.1); Sodium 139 mmol/L (136-145); Total Protein 7.1 g/dL (6.4-8.2); Triglyceride 145 mg/dL (<150)
== END 2022-05-15 02:28 | disposition home or self-care (01) ==
LOC: LBO 02:28
PROVIDERS: PCP Nurse Practitioner; Referring Provider Nurse Practitioner; Visit Provider Nurse Practitioner
DX: I10 Essential (primary) hypertension (principal); E53.8 Deficiency of other specified B group vitamins; E78.5 Hyperlipidemia, unspecified; I25.9 Chronic ischemic heart disease, unspecified; M48.061 Spinal stenosis, lumbar region without neurogenic claudication; Z01.818 Encounter for other preprocedural examination
CPT/HCPCS: 36415; 80053; 80061; 85027

== ENCOUNTER 2022-06-02 20:53 | Outpatient (REF) | payer SELFPAY ==
[2022-06-02 22:40] LABS: Bilirubin Negative (Negative); Blood Negative (Negative); Clarity Clear (Clear); Glucose Negative (Negative); Ketones Negative (Negative); Leukocyte Esterase Negative (Negative); Nitrite Negative (Negative); Specific Gravity >= 1.030 (1.005-1.025); Urobilinogen 0.2 EU/dL (Up TO 0.2); pH 5.5 (5-8)
== END 2022-06-02 20:54 | disposition home or self-care (01) ==
LOC: LBN 20:53
PROVIDERS: PCP Nurse Practitioner; Visit Provider Nurse Practitioner Family
DX: N40.1 Benign prostatic hyperplasia with lower urinary tract symptoms (principal); N18.9 Chronic kidney disease, unspecified
CPT/HCPCS: 81003; 87086

== ENCOUNTER 2022-06-04 16:46 | Inpatient (IN) | payer MEDICARE, OTHER, SELFPAY ==
[2022-06-04] VITALS (39 sets, daily range): BP systolic 62–147; BP diastolic 17–94; PULSE 47–60; RESP 11–20; TEMP 36.4; O2SAT 93–100
--- NOTE | 2022-06-04 16:45 | RT.EKG_ITS ---
APPROVED REPORT Exam: Resting ECG Reason for Exam: BRADYCARDIA Patient Location: E HR:50 bpm ECG Measurements Heart Rate 50 AXIS OK 182 P 69 QRSd 116 QRS -23 QT 463 T -15 QTc 425 Conclusion Sinus bradycardia...rate< 60 Nonspecific intraventricular conduction delay...QRSd >115mS, not LBBB/RBBB Inferior infarct, old...Q >35mS, II III aVF
[2022-06-04] MEDS: Normal Saline 1,000 ML 1000 ML IV ×2 (17:00→17:38)
--- NOTE | 2022-06-04 17:00 | DI.RAD_ITS ---
Exam(s) XR PORTABLE CHEST AP EXAM: XR PORTABLE CHEST AP CLINICAL HISTORY: weakness, low BP TECHNIQUE: 2D digital imaging was performed of the chest. One image was obtained. An AP view was ob tained. COMPARISON: CR,XR XR PORTABLE CHEST AP from 08/04/2021 FINDINGS: MEDIASTINUM: Normal. HEART: Normal. PULMONARY VASCULATURE: Normal. LUNGS: Clear. PLEURAL SPACE: No pleural effusion or pneumothorax. BONE:Within normal limits for the patient's age. There is a right convex curvature of the thoracic sp ine. OTHER FINDINGS:Normal. IMPRESSION: No acute pulmonary findings. DATA REPOSITORY: RADIATION DOSE DELIVERED:
--- NOTE | 2022-06-04 17:09 | W.ED.GENAD ---
Discharge Plan Disposition Patient Disposition: [facility] INPATIENT Condition: Improving Discharge Details Clinical Impression: Hypovolemia due to dehydration, Acute renal failure Primary Care Provider: Shayy Poon ED Provider: Ej Harding Home Meds and New Rx's Prescriptions: No Action simvastatin 20 mg tablet 20 mg PO DAILY Qty: 90 3RF carvedilol 12.5 mg tablet 12.5 mg PO BID Qty: 180 3RF Rx Instructions: must administer with a meal/food lisinopril 40 mg tablet 40 mg PO DAILY Qty: 90 3RF naproxen sodium 220 MG tablet 220 mg PO DAILY PRN cyanocobalamin (vitamin B-12) [Vitamin B-12] 1,000 MCG tablet 1,000 mcg PO DAILY hydrochlorothiazide 25 mg tablet 25 mg PO DAILY Qty: 90 3RF aspirin [Aspir-81] 81 MG tablet,delayed release (DR/EC) 81 mg PO DAILY ondansetron HCl 4 mg tablet 1 tab PO Q8H PRN PRN (Reason: Vomiting) acetaminophen 500 mg Tablet 1,000 mg PO TID Medical Decision Making 81-year-old male presents from local rehabilitation facility where he has been recovering following lumbar laminectomy that was performed at [facility] last week. He is reported to be weak and hypotensive today. EMS found him to have a blood pressure 60/40. He is mentating. IV was started the patient was given 500 cc normal saline and transported to the hospital. He arrives to the ER awake and alert with blood pressure 70/20, pulse of 50. He is oxygenating normal. Patient is a well-healed surgical incision. There was report from EMS that Rehabilitation facility was concerned that the patient was leaking CSF and soaking the bed sheets. I do not appreciate evidence of this on exam and with suspected serous fluid as the most probable source. Patient was placed in a monitored bed. He was given normal saline fluid bolus and blood pressure quickly improved to 96/25, and 110/35. My initial impression is of severe volume depletion, must exclude underlying infectious process and patient referred for broad work-up including blood work, blood cultures, urinalysis, chest x-ray and EKG. Diagnostic reveal concentrated urine with a specific gravity greater than 1.03, white blood cell count of 11.5, hematocrit 36, platelets 322. Venous lactate is normal. Sodium is 133, potassium 3.6, chloride 95, bicarb 22, BUN 161 with creatinine of 5.0. At the beginning of May the patient's BUN was 31 and creatinine 1.5 Chest x-ray with no acute findings. Patient received 500 cc of normal saline from EMS as well as 2 L normal saline in the ER. Following this his blood pressure improved to 111/51. Repeat chemistry obtained with some improvement of the renal function. I do feel the patient will benefit from further hydration and observation. Patient to be admitted. HPI General Mode of arrival: EMS. Date/Time Provider Initiated Documentation: 06/04/22 16:57. Limitations to Documentation: no limitations. Information obtained by: patient and EMS. History of Present Illness 81 year old M presents to the emergency department with the chief complaint of Low blood pressure and weakness, decreased p.o. , described as moderate, Quality is described as constant, Patient started experiencing this hour(s) and it has been constant. No relieving factors improve symptom(s), No exacerbating factors reported . Patient notes loss of appetite, malaise and weakness; denies fever/chills and headaches. Patient did receive the following treatments prior to arrival, other (500cc ns) Related Data Home Medications Medication Instructions Recorded Confirmed naproxen sodium 220 mg tablet 220 mg PO DAILY PRN 01/30/13 06/04/22 aspirin 81 mg tablet,delayed 81 mg PO DAILY 08/05/16 06/04/22 release (Aspir-) cyanocobalamin (vitamin B-12) 1,000 mcg PO DAILY 09/14/17 06/04/22 1,000 mcg tablet (Vitamin B-12) hydrochlorothiazide 25 mg tablet 25 mg PO DAILY #90 tabs 08/21/21 06/04/22 carvedilol 12.5 mg tablet 12.5 mg PO BID #180 tabs 11/17/21 06/04/22 lisinopril 40 mg tablet 40 mg PO DAILY #90 tabs 11/17/21 06/04/22 simvastatin 20 mg tablet 20 mg PO DAILY #90 tab-caps 11/17/21 06/04/22 acetaminophen 500 mg tablet 1,000 mg PO TID 06/04/22 06/04/22 ondansetron HCl 4 mg tablet 1 tab PO Q8H PRN PRN Vomiting 06/04/22 06/04/22 Previous Rx's Medication Instructions Recorded hydrochlorothiazide 25 mg tablet 25 mg PO DAILY #90 tabs 08/21/21 carvedilol 12.5 mg tablet 12.5 mg PO BID #180 tabs 11/17/21 lisinopril 40 mg tablet 40 mg PO DAILY #90 tabs 11/17/21 simvastatin 20 mg tablet 20 mg PO DAILY #90 tab-caps 11/17/21 Allergies Allergy/AdvReac Type Severity Reaction Status Date / Time Penicillins Allergy Unknown many Verified 06/04/22 17:05 years ago atorvastatin AdvReac Intermediate widespread Verified 06/04/22 17:05 pain General Stated Complaint: AMS/LOC VIELKA: 1 Review of Systems Narrative: Poor p.o. intake, no back pain, no fever. Generalized weakness. Decreased urine output with dark-colored urine. no numbness. 8 systems were reviewed and otherwise - [facility] All Active Problems (Updated 06/04/22 @ 19:09 by Ej Harding MD) Hypovolemia due to dehydration (Acute) Acute renal failure (Acute) BAUTISTA (dyspnea on exertion) (Acute) Vertigo (Acute) Wheeze (Acute) Cough (Acute) Dizziness (Acute) Shortness of breath (Acute) Medicare annual wellness visit, subsequent (Acute) Anxiety (Chronic) Other and unspecified hyperlipidemia (Acute 01/26/12) CAD; LDL baseline 151 Memory loss (Acute 03/23/13) 2012 MMSE 27/30 Low back pain (Acute 05/24/13) xray 05/2013 neg DJD; chiropractor Rx MRI 06/01/16 disc herniation L2-3; spinal stenosis L3-4; [place] [facility] [place] (Acute 02/27/16) Lumbar stenosis without neurogenic claudication (Chronic) 04/08/22 [facility], Dr Reed, plan for lumbar laminectomy and fusions Gastroesophageal reflux disease (Acute 01/26/12) Essential hypertension, benign (Acute 08/28/13) Depressive disorder, not elsewhere classified (Chronic 01/26/12) Cough (Acute 09/05/12) spirometry 08/2012 WNL Chronic rhinitis (Acute 01/26/12) Chronic ischemic heart disease, unspecified (Acute 01/26/12) hx ACS [place] [facility] [place] Holter 06/2014 Cholelithiasis without obstruction (Acute 01/26/12) BPH w/o urinary obs/LUTS (Acute 01/26/12) B12 deficiency (Acute 03/23/13) Surgical History Appendectomy Cholecystectomy Tonsillectomy and adenoidectomy Family History Mother , [place] at age 82. Essential hypertension Heart disease [place] Father , unknown at age 40. No problems noted. 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 Pleasant, well groomed, interactive. HEAD: Normocephalic, atraumatic ENT: Mucous membranes dry, oropharynx unremarkable, External ear exam unremarkable EYES: PERRL, EOMI NECK: Full ROM, no RONNIE, no menigismus CHEST/RESP: Nontender, clear to auscultation bilateral, no wheeze/rhonchi/rales CARDIOVASCULAR: RRR, no murmur, rub brayden. 2+ Rad pulse bilateral ABDOMEN: Soft, nontender, no mass. +Bowel sounds Back: Lumbar vertical incision without surrounding erythema, no fluid leaking, nontender EXT: Full ROM, sensation intact Neuro: Grossly normal neurologic exam, conversant, interactive. Psych: Speech fluent, thoughts congruent, affect normal Course Vital Signs Vital signs: Vital Signs Pulse 49 L 06/04/22 16:56 Respiratory Rate 18 06/04/22 16:56 Blood Pressure 68/17 L 06/04/22 16:56 Pulse Oximetry 96 06/04/22 16:56 Temperature Source Skin 06/04/22 16:56 Pulse 49 L 06/04/22 16:56 Respiratory Rate 18 06/04/22 16:56 Blood Pressure 68/17 L 06/04/22 16:56 Blood Pressure Position Sitting 06/04/22 16:56 Pulse Oximetry 96 06/04/22 16:56 Oxygen Delivery Method Room Air 06/04/22 16:56 Oxygen Flow Rate 0 06/04/22 16:56
[2022-06-04 17:19] LABS: Abs Immature Grans 0.05 10^3/uL (0.0-0.06); Absolute Basophil Count 0.01 10^3/uL (0.0-0.2); Absolute Eosinophil Count 0.02 10^3/uL (0.0-0.7); Absolute Lymphocyte Count 0.93 10^3/uL (1.2-3.4); Absolute Monocyte Count 0.85 10^3/uL (0.1-0.8); Absolute Neutrophil Count 9.73 10^3/uL (1.2-6.7); Basophils % 0.1; Eosinophils % 0.2; HCT 36.5 % (40.0-50.0); HGB 12.5 g/dL (13.5-17.5); Immature Grans % 0.4; MCH 30.5 pg (27.0-33.0); MCHC 34.2 % (32.0-36.0); MCV 89 fL (80-95); MPV 10.3 fL (8.0-11.0); Monocytes % 7.3; Platelet Count 322 10^3/uL (130-400); RDW 13.2 % (11.8-14.1); RDW-SD 43.3 fL; WBC 11.58 10^3/uL (4.4-10.8)
[2022-06-04 17:33] LABS: Bilirubin Negative (Negative); Blood Large (Negative); Clarity Cloudy (Clear); Glucose Negative (Negative); Ketones Negative (Negative); Leukocyte Esterase Negative (Negative); Nitrite Negative (Negative); Specific Gravity >= 1.030 (1.005-1.025); Urobilinogen 0.2 EU/dL (Up TO 0.2)
[2022-06-04 17:36] LABS: Troponin I < 50 ng/L (<or=60)
[2022-06-04 17:38] LABS: Bacteria Negative HPF (Negative); C & S Indicated? No; Casts Negative LPF (Negative); Crystals Negative HPF (Negative); Epithelial Cells Rare HPF (Negative); Mucus Negative (Negative); RBC >50 HPF (0-2); WBC 0-2 HPF (0-5)
[2022-06-04 17:43] LABS: Lactate 0.9 mmol/L (0.6-1.4)
[2022-06-04 17:51] LABS: ALT 28 U/L (16-63); AST 11 U/L (15-37); Albumin 2.6 g/dL (3.4-5.0); Alkaline Phosphatase 63 U/L (46-116); Anion Gap 15.9 mmol/L (3-11); Bilirubin, Total 0.9 mg/dL (0.2-1.0); CO2 22.1 mmol/L (21.0-32.0); Chloride 95 mmol/L (98-107); Estimated GFR 11.17 (mL/min/1.73m2); Glucose 116 mg/dL (74-106); Potassium 3.6 mmol/L (3.5-5.1); Sodium 133 mmol/L (136-145); Total Protein 6.5 g/dL (6.4-8.2)
--- NOTE | 2022-06-04 17:52 | DI.VRAD_ITS ---
PROCEDURE INFORMATION: Exam: XR Chest Exam date and time: 06/04/2022 5:11 PM Age: 81 years old Clinical indication: Other: Weakness, low BP TECHNIQUE: Imaging protocol: Radiologic exam of the chest. Views: 1 view. COMPARISON: CT CHEST WO 09/03/2021 3:17 PM FINDINGS: Lungs: No consolidation. Pleural spaces: No pleural effusion. No pneumothorax. Heart/Mediastinum: No cardiomegaly. Bones/joints: Unremarkable. IMPRESSION: No acute findings. Dictated and Authenticated by: Winifred Yang MD. Ordering:LEELA Pagan MD
[2022-06-04 18:03] LABS: BUN 161 mg/dL (7-18)
[2022-06-04 18:56] LABS: Anion Gap 14.7 mmol/L (3-11); CO2 21.3 mmol/L (21.0-32.0); Calcium 7.8 mg/dL (8.5-10.1); Chloride 98 mmol/L (98-107); Estimated GFR 13.29 (mL/min/1.73m2); Glucose 117 mg/dL (74-106); Potassium 3.6 mmol/L (3.5-5.1); Sodium 134 mmol/L (136-145)
[2022-06-04 18:59] LABS: BUN 155 mg/dL (7-18)
[2022-06-04 19:00] LABS: CREATININE 4.3 mg/dL (0.70-1.30)
[2022-06-04] MEDS: Acetaminophen 325 MG TAB 650 MG PO (19:15)
[2022-06-04] MEDS: Normal Saline 1,000 ML 200 ML IV ×2 (19:24→23:59)
[2022-06-04 21:15] LABS: Troponin I < 50 ng/L (<or=60)
[2022-06-05] VITALS (7 sets, daily range): BP systolic 126–156; BP diastolic 62–78; PULSE 54–74; RESP 14–18; TEMP 36.6–37.1; O2SAT 94–98
--- NOTE | 2022-06-05 00:15 | HPE_ITS ---
Date of service: 06/04/22 Time of Service: 23:30 Assessment and Plan Assessment and plan (1) Hypovolemia due to dehydration: Status: Acute Assessment and plan: Mr. Ocampo clearly responded well to fluids in the emergency room with normalization of blood pressure and improvement in renal function. Continue fluids at 200ml/hr over night. He has no h/o CHF. (2) Acute renal failure: Status: Acute Assessment and plan: As above, pre-renal azotemia from dehydration appears to be the primary cause, though NSAID use could also have contributed. High BUN c/w this assessment. Holding diuretic and MONTSERRAT inhibiltor forn now. Monitoring urine output. (3) Headache: Status: Acute Assessment and plan: My concern is that a CSF leak is indeed at the root of this presentation, which resultant headaches, nausea/anorexia, vertigo, and malaise. We will need to discuss the case with his neurosurgeon and consider MRI. I do not see signs of CSF infection. Slight drainage may simply be serous, but we may also need to test for CSF. For now, APAP prn (4) Lumbar stenosis without neurogenic claudication: Status: Chronic Assessment and plan: Resume physical therapy once headache and dizziness have improved. As above re- operation with patching may be necessary if CSF leak confirmed. (5) Essential hypertension, benign: Status: Acute Assessment and plan: Holding BP medications due to AGATA. Will resume starting with carvedilol as the BP climbs. (6) DVT prophylaxis: Status: Acute Assessment and plan: LMWH (7) Discharge planning issues: Status: Acute Assessment and plan: Will plan to return to rehabilitation when blood pressure stable AGATA improved, CSF leak question resolved. History of Present Illness History of Present Illness Chief Complaint: weakness Narrative: 81 yo M with CAD who is POD #10 s/p lumbar laminectomy for spinal stenosis at [facility] who was sent from the rehabilitation facility with weakness, blood pressure found to be 60/40 by EMS. Mr. Ocampo states he has not been eating much of anything since his surgery. Has had constant nausea and headache since the surgery that he did not have before the surgery. Headache is nuchal bilateral and travels anteriorly to the frontal head. He also has vertigo that is triggered from sitting up or moving around in bed. He has been able to eat a few things like fruit, but the thought of any salty foods makes him nauseous. He also admits that he has had some confusion, like thinking he just had the surgery when several days had passed that he didn't remember. He has also had some mid chest discomfort and tenderness to touch since the surgery, and he was told by his surgeon that this was relate to being prone during surgery. States he had a drain in his wound under 1-2 days ago when it was pulled. Pain in the back isn't bad, but is worse in certain positions. no changes in medication leading up to or following liza, has taken his blood pressure medication regularly. Review of Systems Constitutional Constitutional: Reports as per HPI, Reports anorexia, Denies chills, Reports fatigue, Denies fever(s), Reports lethargy, Reports poor appetite and Denies weakness Eyes Eyes: Denies change in vision and Denies irritation ENT Ears, Nose, Mouth, and Throat: Denies change in voice, Denies dysphagia, Denies otalgia, Denies nasal congestion, Denies nasal discharge and Denies sore throat Cardiovascular Cardiovascular: Denies palpitations and Denies orthopnea Respiratory Respiratory: Denies cough, Denies excessive phlegm production and Denies wheezing Gastrointestinal Gastrointestinal: Denies abdominal pain, Denies constipation, Denies dysphagia, Denies heartburn, Denies diarrhea, Reports nausea and Denies vomiting Genitourinary Genitourinary: Denies hematuria, Denies dysuria and Denies urinary incontinence Integumentary/Breasts Skin/Breast: Denies rash and Denies skin ulcer Neurologic Neurologic: Denies sensory deficit and Denies weakness Psychiatric Psychiatric: Denies mood swings and Denies panic attacks Endocrine Endocrine: Reports fatigue and Denies palpitations Hematologic/Lymphatic Hematologic/Lymphatic: Denies easy bleeding Allergic/Immunologic Allergic/Immunologic: Denies wheezing PFSH All Active Problems (Updated 06/05/22 @ 00:41 by Nakul Cobb) Discharge planning issues (Acute) DVT prophylaxis (Acute) Headache (Acute) Hypovolemia due to dehydration (Acute) Acute renal failure (Acute) BAUTISTA (dyspnea on exertion) (Acute) Vertigo (Acute) Wheeze (Acute) Dizziness (Acute) Medicare annual wellness visit, subsequent (Acute) Anxiety (Chronic) Other and unspecified hyperlipidemia (Acute 01/26/12) CAD; LDL baseline 151 Memory loss (Acute 03/23/13) 2013 MMSE 27/30 Low back pain (Acute 05/24/13) xray 05/2013 neg DJD; chiropractor Rx MRI 06/01/16 disc herniation L2-3; spinal stenosis L3-4; [place] [facility] [place]Ac[place] 02/27/16) Lumbar stenosis without neurogenic claudication (Chronic) 04/08/22 [facility], Dr Reed, plan for lumbar laminectomy and fusions Gastroesophageal reflux disease (Acute 01/26/12) Essential hypertension, benign (Acute 08/28/13) Depressive disorder, not elsewhere classified (Chronic 01/26/12) Cough (Acute 09/05/12) spirometry 08/2012 WNL Chronic rhinitis (Acute 01/26/12) Chronic ischemic heart disease, unspecified (Acute 01/26/12) hx ACS [place] [facility] [place] Holter 06/2014 Cholelithiasis without obstruction (Acute 01/26/12) BPH w/o urinary obs/LUTS (Acute 01/26/12) B12 deficiency (Acute 03/23/13) Surgical History Appendectomy Cholecystectomy Tonsillectomy and adenoidectomy Family History Mother , [place] at age 82. Essential hypertension Heart disease [place] Father , unknown at age 40. No problems noted. 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 Working smoke detector in home: Yes Carbon monox detector in home: Yes Do you feel safe in your relationship?: Yes Additional Social history: Grew up in [place], worked in [place], came to [place] through job with [place], mother lived here Lives in [facility] Allergies and Home Medications Allergies Allergy/AdvReac Type Severity Reaction Status Date / Time Penicillins Allergy Unknown many Verified 06/04/22 17:05 years ago atorvastatin AdvReac Intermediate widespread Verified 06/04/22 17:05 pain Home Medications Medication Instructions Recorded Confirmed Type naproxen sodium 220 mg tablet 220 mg PO DAILY PRN 01/30/13 06/04/22 History aspirin 81 mg tablet,delayed 81 mg PO DAILY 08/05/16 06/04/22 History release (Aspir-) cyanocobalamin (vitamin B-12) 1,000 mcg PO DAILY 09/14/17 06/04/22 History 1,000 mcg tablet (Vitamin B-12) hydrochlorothiazide 25 mg tablet 25 mg PO DAILY #90 tabs 08/21/21 06/04/22 Rx carvedilol 12.5 mg tablet 12.5 mg PO BID #180 tabs 11/17/21 06/04/22 Rx lisinopril 40 mg tablet 40 mg PO DAILY #90 tabs 11/17/21 06/04/22 Rx simvastatin 20 mg tablet 20 mg PO DAILY #90 tab-caps 11/17/21 06/04/22 Rx acetaminophen 500 mg tablet 1,000 mg PO TID 06/04/22 06/04/22 History ondansetron HCl 4 mg tablet 1 tab PO Q8H PRN PRN Vomiting 06/04/22 06/04/22 History Exam Narrative Exam Narrative: GEN: Alert and oriented, pleasant and cooperative, gives linear history in Arabic and Lao. No acute distress at rest, but clearly uncomfortable when trying to sit up in bed. HEENT: Head atraumatic. Conjunctiva clear, no icterus. PEERL, EOMI. no rhinorrhea. mucous membranes dry, OP benign. Neck is supple with no masses or lymphadenopathy, nl ROM neck LUNGS: CTAB with normal effort CV: RRR with no murmurs, gallops, or rubs. ABD: +BS, soft, NT/ND EXT: no cyanosis, clubbing, or edema MSK: No joint redness or swelling NEURO: CN 2-12 grossly intact. Normal movement of 4 extremities. Normal speech and coordination. He did not tolerate sitting up in bed or walking due to vertigo feeling. I did not not nystagmus. SKIN: No rashs. lumbar wound with sinus on superior aspect of wound draining clear fluid, wound otherwise closed and intact, though thin stripe or white tissue in middle of wound. Surrounding skin not red or swollen. PSYCH: normal mood and affect. linear though process. Results Labs Result diagrams: 06/04/22 16:55 06/04/22 18:31 Labs: Laboratory Results - last 24 hr 06/04/22 06/04/22 06/04/22 16:55 16:55 16:55 WBC 11.58 H RBC 4.10 L Hgb 12.5 L Hct 36.5 L MCV 89 MCH 30.5 MCHC 34.2 RDW 13.2 Plt Count 322 MPV 10.3 Immature Gran % 0.4 Neutrophils % 84.0 Lymphocytes % 8.0 Monocytes % 7.3 Eosinophils % 0.2 Basophils % 0.1 Nucleated RBC % 0.0 Absolute Neutrophils 9.73 H Absolute Lymphocytes 0.93 L Absolute Monocytes 0.85 H Absolute Eosinophils 0.02 Absolute Basophils 0.01 VBG Lactate Sodium 133 L Potassium 3.6 Chloride 95 L Carbon Dioxide 22.1 Anion Gap 15.9 H BUN 161 H* Creatinine 5.0 H* Estimated GFR/1.73 m2 11.17 Glucose 116 H Calcium 8.0 L Total Bilirubin 0.9 AST 11 L ALT 28 Alkaline Phosphatase 63 Troponin I < 50 Total Protein 6.5 Albumin 2.6 L Urine Color Urine Clarity Urine pH Ur Specific [place] Urine Protein Urine Ketones Urine Blood Urine Nitrite Urine Bilirubin Urine Urobilinogen Ur Leukocyte Esterase Urine RBC Urine WBC Ur Epithelial Cells Urine Crystals Urine Bacteria Urine Casts Urine Mucus Ur Culture Indicated? Urine Glucose 06/04/22 06/04/22 06/04/22 17:25 17:35 18:31 WBC RBC Hgb Hct MCV MCH MCHC RDW Plt Count MPV Immature Gran % Neutrophils % Lymphocytes % Monocytes % Eosinophils % Basophils % Nucleated RBC % Absolute Neutrophils Absolute Lymphocytes Absolute Monocytes Absolute Eosinophils Absolute Basophils VBG Lactate 0.9 Sodium 134 L Potassium 3.6 Chloride 98 Carbon Dioxide 21.3 Anion Gap 14.7 H BUN 155 H* Creatinine 4.3 H* Estimated GFR/1.73 m2 13.29 Glucose 117 H Calcium 7.8 L Total Bilirubin AST ALT Alkaline Phosphatase Troponin I Total Protein Albumin Urine Color Yellow Urine Clarity Cloudy Urine pH 5.0 Ur Specific [place] >= 1.030 H Urine Protein Negative Urine Ketones Negative Urine Blood Large H Urine Nitrite Negative Urine Bilirubin Negative Urine Urobilinogen 0.2 Ur Leukocyte Esterase Negative Urine RBC >50 H Urine WBC 0-2 Ur Epithelial Cells Rare Urine Crystals Negative Urine Bacteria Negative Urine Casts Negative Urine Mucus Negative Ur Culture Indicated? No Urine Glucose Negative 06/04/22 20:42 WBC RBC Hgb Hct MCV MCH MCHC RDW Plt Count MPV Immature Gran % Neutrophils % Lymphocytes % Monocytes % Eosinophils % Basophils % Nucleated RBC % Absolute Neutrophils Absolute Lymphocytes Absolute Monocytes Absolute Eosinophils Absolute Basophils VBG Lactate Sodium Potassium Chloride Carbon Dioxide Anion Gap BUN Creatinine Estimated GFR/1.73 m2 Glucose Calcium Total Bilirubin AST ALT Alkaline Phosphatase Troponin I < 50 Total Protein Albumin Urine Color Urine Clarity Urine pH Ur Specific [place] Urine Protein Urine Ketones Urine Blood Urine Nitrite Urine Bilirubin Urine Urobilinogen Ur Leukocyte Esterase Urine RBC Urine WBC Ur Epithelial Cells Urine Crystals Urine Bacteria Urine Casts Urine Mucus Ur Culture Indicated? Urine Glucose Last Vital Signs Temp 36.6 C 06/05/22 00:13 Pulse 62 06/05/22 00:13 Resp 16 06/05/22 00:13 BP 138/68 06/05/22 00:13 Pulse Ox 95 06/05/22 00:13
[2022-06-05 00:29] LABS: Source Nasal/Nares
[2022-06-05] MEDS: Normal Saline 1,000 ML 200 ML IV (04:37)
[2022-06-05] MEDS: Enoxaparin 40 MG/0.4 ML SYR SC (08:03)
[2022-06-05] MEDS: Aspirin E.C. 81 MG TABEC PO (08:04)
[2022-06-05] MEDS: Simvastatin 20 MG TAB PO (08:04)
[2022-06-05] MEDS: Acetaminophen 500 MG TAB 1000 MG PO ×3 (08:04→19:57)
[2022-06-05 08:43] LABS: Anion Gap 11.1 mmol/L (3-11); CO2 21.9 mmol/L (21.0-32.0); CREATININE 2.2 mg/dL (0.70-1.30); Calcium 8.2 mg/dL (8.5-10.1); Chloride 106 mmol/L (98-107); Glucose 98 mg/dL (74-106); Potassium 3.7 mmol/L (3.5-5.1); Sodium 139 mmol/L (136-145)
[2022-06-05 08:45] LABS: BUN 105 mg/dL (7-18)
--- NOTE | 2022-06-05 08:51 | PDOC.CMIN ---
- If Service Date Differs Date of service: 06/05/22 Time of Service: 08:51 Care Management Initial Assess REASON FOR HOSPITALIZATION:: Uremia, dehydration, BALDERRAMA, Acute Renal Failure PAST MEDICAL HISTORY/PAST SURGICAL HISTORY:: All Active Problems (Updated 06/05/22 @ 00:41 by Nakul Cobb). Discharge planning issues (Acute). DVT prophylaxis (Acute). Headache (Acute). Hypovolemia due to dehydration (Acute). Acute renal failure (Acute). BAUTISTA (dyspnea on exertion) (Acute). Vertigo (Acute). Wheeze (Acute). Dizziness (Acute). Medicare annual wellness visit, subsequent (Acute). Anxiety (Chronic). Other and unspecified hyperlipidemia (Acute 01/26/12). CAD; LDL baseline 151. Memory loss (Acute 03/23/13). 2012 MMSE . Low back pain (Acute 05/24/13). xray 05/2013 neg DJD; chiropractor Rx. MRI 06/01/16 disc herniation L2-3; spinal stenosis L3-4; Dr Burks [facility] [place]. Imbalance (Acute 02/27/16). Lumbar stenosis without neurogenic claudication (Chronic). 04/08/22 [facility], Dr Reed,. plan for lumbar laminectomy and fusions. Gastroesophageal reflux disease (Acute 01/26/12). Essential hypertension, benign (Acute 08/28/13). Depressive disorder, not elsewhere classified (Chronic 01/26/12). Cough (Acute 09/05/12). spirometry 08/2012 WNL. Chronic rhinitis (Acute 01/26/12). Chronic ischemic heart disease, unspecified (Acute 01/26/12). hx ACS ?[place] and stent [facility] [place] neg Holter 06/2014. Cholelithiasis without obstruction (Acute 01/26/12). BPH w/o urinary obs/LUTS (Acute 01/26/12). B12 deficiency (Acute 03/23/13). Surgical History . Appendectomy. Cholecystectomy. Tonsillectomy and adenoidectomy PREVIOUS FUNCTIONAL STATUS/SOCIAL/FAMILY SUPPORTS:: Jaime is currently residing at [facility] for [facility], following a procedure at [facility] last week. Prior to this, he reports that he lives in [facility] alone and is independent at baseline. He also owns his own vehicle and drives. CURRENT FUNCTIONAL STATUS:: Jaime was lying in bed when CM met with him. He appears tired and engages in conversation minimally for this interview. ADVANCE DIRECTIVES:: None on file at [facility] Has patient been provided with info about the portal/API?: Yes Did the patient sign up for the portal?: Yes (Prior to admission) CODE STATUS:: Full Code INSURANCE COVERAGE / FINANCIAL ISSUES:: Medicare. Commercial Ins: [employer] PRIMARY CARE PHYSICIAN:: Shayy Poon PATIENT/FAMILY EDUCATION NEEDS:: Review discharge instructions, limitations, medications and plan to follow up with community providers. ask me three. TRANSPORTATION:: Via facility van. PLAN:: Anticipate, Jaime will discharge back to [facility] when medically ready per provider. He will follow up with his community providers and discharge plan of care as prescribed. He will transport via facility van.
[2022-06-05] MEDS: Cyanocobalamin 500 MCG TAB 1000 MCG PO (09:21)
--- NOTE | 2022-06-05 11:02 | IN_ITS ---
Date of service: 06/05/22 Time of Service: 11:02 PT Notes Visit Reasons: Uremia Physical Therapy Inpatient Initial Evaluation Date: 06/05/2022 Referring Doctor: Jose Eduardo Londono MD PT Orders: PT CONSULT: Eval/Treat Precautions: Fall. Standard. Activity as tolerated. Patient Profile/Admitting Diagnosis: Jaime is an 81-year-old male with past medical history significant for lumbar stenosis with neurogenic claudication who presented to the ER 06/04/2022 with report of weakness and hypotension in the low 60s over 40s mmHg on admission. Patient is status post lumbar laminectomy at [facility] last week and comes in with diagnoses of hypovolemia due to dehydration, acute renal failure, headache, and essential hypertension. PMHX: All Active Problems?(Updated 06/05/22 @ 00:41 by Nakul Cobb) Discharge planning issues (Acute) DVT prophylaxis (Acute) Headache (Acute) Hypovolemia due to dehydration (Acute) Acute renal failure (Acute) BAUITSTA (dyspnea on exertion) (Acute) Vertigo (Acute) Wheeze (Acute) Dizziness (Acute) Medicare annual wellness visit, subsequent (Acute) Anxiety (Chronic) Other and unspecified hyperlipidemia (Acute 01/26/12) CAD; LDL baseline 151 Memory loss (Acute 03/23/13) 2012 MMSE 27/30 Low back pain (Acute 05/24/13) xray 05/2013 neg DJD; chiropractor Rx MRI 06/01/16 disc herniation L2-3; spinal stenosis L3-4; Dr [place] [facility] [place]mb[place] (Acute 02/27/16) Lumbar stenosis without neurogenic claudication (Chronic) 04/08/22 [facility], Dr Reed, plan for lumbar laminectomy and fusions Gastroesophageal reflux disease (Acute 01/26/12) Essential hypertension, benign (Acute 08/28/13) Depressive disorder, not elsewhere classified (Chronic 01/26/12) Cough (Acute 09/05/12) spirometry 08/2012 WNL Chronic rhinitis (Acute 01/26/12) Chronic ischemic heart disease, unspecified (Acute 01/26/12) hx ACS ?[place] and stent [facility]; neg Holter 06/2014 Cholelithiasis without obstruction (Acute 01/26/12) BPH w/o urinary obs/LUTS (Acute 01/26/12) B12 deficiency (Acute 03/23/13) Surgical History? Appendectomy Cholecystectomy Tonsillectomy and adenoidectomy Recent Laminectomy Social History/Home Situation: Lives alone in a private home with 4 steps to enter. Has a flight of steps to the second floor where his bedroom is. Ambulated independently using single- point cane indoors and outdoors. Equipment Owned/DME: SPC Subjective: Complains of headache at in the front and top of his head which he states he has had since after surgery. Reported significant spinning sensation when he sat up on the edge of the bed and walked with this provider. Complained of momentary right-sided chest pain when he tried to sit up. Nurse Wilder aware of all symptoms reported. Agreeable to being moved out of bed. Concerned about being unable to manage home alone and would like to go back to SNF once medically cleared. Objective: General Observation: Supine in bed. IV accesses to R UE. Wound dressing to laminectomy site. Mental Status: Alert and oriented as to person, place, time, and purpose. Able to pay attention, focus, and respond appropriately. Pain: 5-6/ in frontal area Vital Signs: BP stabilizing in the 130s/70s mmHg ROM: Right Upper Extremity: Shoulder Flexion WFL. Shoulder abduction WFL. Elbow flexion WFL. Wrist flexion WFL. Functional opening and closing of hand WFL. Left Upper Extremity: Shoulder Flexion WFL. Shoulder abduction WFL. Elbow flexion WFL. Wrist flexion WFL. Functional opening and closing of hand WFL. Right Lower Extremity: Hip flexion WFL. Hip abduction WFL. Knee flexion WFL. Ankle dorsiflexion -20 degrees. Ankle plantarflexion 45 degrees to 20 degrees. Left Lower Extremity: Hip flexion WFL. Hip abduction WFL. Knee flexion WFL. Ankle dorsiflexion to neutral only. Ankle plantarflexion WFL. Strength: Right Upper Extremity: Shoulder flexors 4-/5. Shoulder abductors 4-/5. Elbow flexors 4-/5. Elbow extensors 4-/5. 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 Left Upper Extremity: Shoulder flexors 4-/5. Shoulder abductors 4-/5. Elbow flexors 4-/5. Elbow extensors 4-/5. 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 Right Lower Extremity: Hip flexors 3+/5. Hip abductors 3+/5. Knee flexors 4-/5. Knee extensors 4-/5. Ankle dorsiflexors 3-/5. Ankle plantarflexors 3-/5. Left Lower Extremity: Hip flexors 3+/5. Hip abductors 3+/5. Knee flexors 4-/5. Knee extensors 4-/5. Ankle dorsiflexors 3-/5. Ankle plantarflexors 4-/5. Bed Mobility/Transfers: Rolling minimal assist Supine to sit contact-guard assist Sit to supine minimal assist to left to B LE Sit to stand with contact-guard assist, cueing required to use both hands for morales pport and for slow ascent Stand to sit with contact-guard assist, cueing required to use both hands for support and for slow descent Bed to toilet seat minimal assist Gait: Instructed patient with level surface ambulation of 20 feet x 2 requiring minimal assist. Tere decreased. Step height in R decreased. Step length decreased. Balance: Static Sitting: Fair Dynamic Sitting: Fair Static Standing: Fair Dynamic Standing: Fair Special Tests: Mobility Limitations Standardized Measure [facility] 6 clicks Basic Mobility Inpatient Short Form: Raw Score: 18 CMS Score: 47% deficit Informed Consent/Education: Patient was instructed in purpose of PT consult and plan of care. Agreeable to proceed with established PT POC to achieve personal goals. Assessment: Decline in mobility requiring use of FWW to maximize safety. R dorsiflexion decreased which patient states he has had for quite a while. B UE strength and range symmetric. Sensation of spinning and frontal headache limited safety of mobility performance today. Gait unstable requiring minimal assist even with walker use. Ambulated patient for essential ADLS only -- from bed to toilet seat to void urine, and then back. Will wait on updates from hospitalist regarding patient's postoperative status before mobility progression is made. Will await updates from back surgeon and clearance from hospitalist to do U[place]- Hallpike maneuver and subsequent corrective maneuver. Will need to return to SNF to achieve safe mobility level before returning home alone to his apartment. Patient presents with clinical signs and symptoms consistent with current/admitting diagnoses that have resulted to mobility limitations, gait instability, generalized weakness, and overall ADL decline as demonstrated by the following impairment level findings: 1. Decreased strength to B UE, B hip/knees and R ankle muscle groups 2. Impaired standing balance 3. Impaired activity tolerance 4. Limitation of joint range of motion in R ankle DF 5. Increasing spinning sensation in the sitting and standing position 6. Persistent postoperative frontal headache at 5-610 Impairments are contributing to the following functional limitations: 1. Decline in bed mobility skills 2. Decline in transfer skills 3. Difficulty with ambulation without assistive device and physical assistance 4. Increased completion time for mobility ADL performance 5. Increased risk for falls 6. Difficulty with managing steps alone safely Patient is assessed as a 75792 moderate complexity based on the following: History: 81-year-old male with past medical history as indicated above Examination: Demonstrable impairment in strength, balance, and mobility level with underlying impairments and functional limitations as exhibited above as well as deficit score of 47% utilizing the [facility] Mobility Inpatient Short Form Presentation: Evolving Decision Makin moderate complexity Goals: Goals X1 week 1. Supine-Sit independent 2. Sit-Supine independent 3. Sit-Stand independent 4. Stand-Sit independent with SPC 5. Bed-Chair independent with SPC 6. Chair-Bed independent with SPC 7. Independent gait on level surface with use of SPC for at least 300 feet without report of pain nor dyspnea 8. Independent stair negotiation while holding onto B rails for at least 12 steps without report of pain nor dyspnea 9. Good static and dynamic standing balance/tolerance Plan of Care/Treatment Plan: 1-2x/day, 7 days/week x 1 week. Plan of care has been reviewed with the CONTINUITY COORDINATOR providing the service under Physical Therapy direction. Initiate Physical Therapy intervention for pain management as needed, strengthening, bed mobility, transfers, gait, stairs, balance training, and use of assistive device. DISCHARGE RECOMMENDATIONS: [] Home with no services [] [] Home with services [specify] [] Home with outpatient PT [] [X] SNF for continued rehabilitation. Patient will benefit from [facility] facility placement for continued skilled physical therapy services in order to progress mobility level, strength, and balance in preparation for a safe discharge to home. [] [facility] [] [] SNF versus LTC based on ability to participate and progress [] TREATMENT CODE/TIME: 39139 2 x 20 minutes, 9753 0 x 60 minutes beginning at 11:02 AM. Thank you for the opportunity to participate in the care of this patient. Sydney Ingram PT, DPT, CLT [facility], [place]
[2022-06-05] MEDS: Carvedilol 12.5 MG TAB PO ×2 (11:16→19:57)
[2022-06-05] MEDS: Meclizine 12.5 MG TAB PO (11:43)
[2022-06-05] MEDS: Normal Saline 1,000 ML 100 ML IV ×2 (12:21→19:57)
--- NOTE | 2022-06-05 13:27 | PT.INTREAT ---
Date of service: 06/05/22 Time of Service: 13:27 PT Notes Visit Reasons: Uremia Physical Therapy Inpatient Treatment Note Date: 06/05/2022 Precautions: Fall. Standard. Activity as tolerated. ? Subjective: Continues to report 6/10 frontal headache despite pain pill intake. Continues to report spinning sensation despite Meclizine intake 2 hours ago. States that he has gotten no relief from symptoms since he was seen this morning. Did not report any chest pain throughout this session. Objective: General Observation: Supine in bed.? IV accesses to R UE.? Wound dressing to laminectomy site. Mental Status: Alert and oriented as to person, place, time, and purpose. Able to pay attention, focus, and respond appropriately. Pain: 5-6/10 in frontal area Vital Signs: BP stabilizing in the 130s/70s mmHg Bed Mobility/Transfers: Sit to supine minimal assist to B LE Sit to stand with contact-guard assist, cueing required to use both hands for support and for slow ascent Stand to sit with contact-guard assist, cueing required to use both hands for support and for slow descent Gait: Instructed patient with level surface ambulation of 20 feet x 2 requiring minimal assist. Tere decreased. Step height in R decreased. Step length decreased.? Balance: Static Sitting: Fair Dynamic Sitting: Fair Static Standing: Fair Dynamic Standing: Fair Assessment: Decline in mobility requiring use of FWW to maximize safety.? R dorsiflexion decreased which patient states he has had for quite a while.? B UE strength and range symmetric.? Sensation of spinning and frontal headache limited safety of mobility performance today.? Gait unstable requiring minimal assist even with walker use.? Ambulated patient for essential ADLS only -- from bed to toilet seat to void urine,? and then back.? Will wait on updates from hospitalist regarding patient's postoperative status before mobility progression is made.? Will await updates from back surgeon and clearance from hospitalist to do [place]-Hallpike maneuver and subsequent corrective maneuver.? Will need to return to SNF to achieve safe mobility level before returning home alone to his apartment. TREATMENT RECEIVED TODAY: Functional mobility training for safe transfers and ambulation using FWW to and from bathroom. PLAN: Hold off on any resistance exercises until reason for persistent postoperative headache is identified and addressed. Ambulation to and from toilet only at this time. May initiate seated AROM to B LE and UE as tolerated. Will await clearance from hospitalist and spine surgeon prior to performing [place]-Hallpike and Janet/corrective maneuvers and before progressing exercise intensity. Monitor vital signs during session. DISCHARGE RECOMMENDATIONS: [] ? Home with no services [] [] ? Home with services [specify] [] ? Home with outpatient PT [] [X] ? SNF for continued rehabilitation.? Patient will benefit from [facility] facility placement for continued skilled physical therapy services in order to progress mobility level, strength, and balance in preparation for a safe discharge to home. [] ? [facility] [] [] ? SNF versus LTC based on ability to participate and progress [] TREATMENT CODE/TIME: 63336 x 36 minutes beginning at 13:27 PM.
[2022-06-05 13:37] LABS: COVID-19 PCR Negative (Negative)
[2022-06-05] MEDS: diazePAM 2 MG TAB PO (17:15)
[2022-06-05] MEDS: Ketorolac 15 MG/ML VIAL IVP (17:19)
[2022-06-05] MEDS: Normal Saline Flush 10 ML SYR IVP (19:58)
[2022-06-06] VITALS (11 sets, daily range): BP systolic 94–172; BP diastolic 50–77; PULSE 49–66; RESP 14–18; TEMP 37–38.6; O2SAT 94–97
--- NOTE | 2022-06-06 | DI.CT_ITS ---
Exam(s) CT HEAD WO EXAM: CT HEAD WO CLINICAL HISTORY: ?subdural hematoma. TECHNIQUE: Imaging Protocol: Axial computed tomography images with coronal and sagittal reformatted images were created and reviewed COMPARISON: CT CT BRAIN NECK CTA from 08/04/2021 FINDINGS: There is moderate generalized cerebral atrophy.. No evidence of acute intracranial hemorrhage, mass effect, or midline shift. The orbital structures are unremarkable. The temporal bone structures appear intact. Calvarium: Normal. Visualized Paranasal sinuses/Mastoids: Clear. IMPRESSION: No evidence of acute intracranial process. RADIATION DOSE DELIVERED: 820.75mGy.cm Total DLP 820.75mGy.cm Total DLP !Error CTDIvol DATA REPOSITORY: All CT scans at this facility are submitted to the National Radiology Data Registry (NRDR) Dose Index Registry (DIR) with the [employer] (ACR). RADIATION OPTIMIZATION: All CT scans at this facility use at least one of these dose optimization te chniques: automated exposure control; mA and/or kV adjustment per patient size (includes targeted exa ms where dose is matched to clinical indication); or iterative reconstruction.
--- NOTE | 2022-06-06 | DI.RAD_ITS ---
Exam(s) XR PORTABLE CHEST AP EXAM: XR PORTABLE CHEST AP CLINICAL HISTORY: fever. TECHNIQUE: 2D digital imaging was performed. COMPARISON: CR,XR XR PORTABLE CHEST AP from 06/04/2022 FINDINGS: LUNGS: Clear. No pleural abnormality seen. HEART: Normal. MEDIASTINUM: Normal. OTHER FINDINGS: None. IMPRESSION: No acute pulmonary findings. DATA REPOSITORY: RADIATION DOSE DELIVERED: Total DLP
[2022-06-06] MEDS: Normal Saline 1,000 ML 100 ML IV ×3 (01:46→19:46)
[2022-06-06 07:00] LABS: HCT 39.3 % (40.0-50.0); HGB 13.5 g/dL (13.5-17.5); MCHC 34.4 % (32.0-36.0); MCV 90 fL (80-95); Platelet Count 331 10^3/uL (130-400); RBC 4.36 10^6/uL (4.36-5.78); RDW 13.6 % (11.8-14.1); RDW-SD 44.6 fL; WBC 11.17 10^3/uL (4.4-10.8)
[2022-06-06 08:10] LABS: Anion Gap 8.9 mmol/L (3-11); CO2 21.1 mmol/L (21.0-32.0); Calcium 8.4 mg/dL (8.5-10.1); Chloride 109 mmol/L (98-107); Estimated GFR 57.96 (mL/min/1.73m2); Glucose 98 mg/dL (74-106); Sodium 139 mmol/L (136-145)
[2022-06-06] MEDS: Acetaminophen 500 MG TAB 1000 MG PO ×3 (08:12→19:46)
[2022-06-06] MEDS: Simvastatin 20 MG TAB PO (08:12)
[2022-06-06] MEDS: Aspirin E.C. 81 MG TABEC PO (08:12)
[2022-06-06] MEDS: Carvedilol 12.5 MG TAB PO ×2 (08:12→19:46)
[2022-06-06] MEDS: Cyanocobalamin 500 MCG TAB 1000 MCG PO (08:12)
[2022-06-06] MEDS: Enoxaparin 40 MG/0.4 ML SYR SC (08:13)
[2022-06-06 08:21] LABS: BUN 52 mg/dL (7-18); CREATININE 1.2 mg/dL (0.70-1.30)
[2022-06-06 09:26] LABS: Source Nasal/Nares
[2022-06-06 09:50] LABS: Lactate 0.9 mmol/L (0.6-1.4)
[2022-06-06 10:17] LABS: Anion Gap 10.5 mmol/L (3-11); BUN 46 mg/dL (7-18); C-Reactive Protein 6.45 mg/dL (0.0-0.3); CO2 21.5 mmol/L (21.0-32.0); CREATININE 1.2 mg/dL (0.70-1.30); Calcium 7.7 mg/dL (8.5-10.1); Chloride 109 mmol/L (98-107); Estimated GFR 57.96 (mL/min/1.73m2); Glucose 134 mg/dL (74-106); Potassium 3.5 mmol/L (3.5-5.1); Sodium 141 mmol/L (136-145)
[2022-06-06 10:22] LABS: COVID-19 PCR Negative (Negative)
--- NOTE | 2022-06-06 10:25 | DI.VRAD_ITS ---
PROCEDURE INFORMATION: Exam: XR Chest Exam date and time: 06/06/2022 9:03 AM Age: 81 years old Clinical indication: Fever TECHNIQUE: Imaging protocol: Radiologic exam of the chest. Views: 1 view. COMPARISON: XR PORTABLE CHEST AP 06/04/2022 5:11 PM FINDINGS: Lungs: Unremarkable. No consolidation. Pleural spaces: Unremarkable. No pleural effusion. No pneumothorax. Heart/Mediastinum: Unremarkable. No cardiomegaly. Bones/joints: There is moderate thoracic scoliosis convex to the right. IMPRESSION: No significant cardiopulmonary abnormality. Dictated and Authenticated by: Dontrell Montgomery MD. Ordering:SEBAS Lan MD
[2022-06-06 10:41] LABS: Procalcitonin 0.1 ng/mL
[2022-06-06] MEDS: Bisacodyl 5 MG TABEC PO (11:33)
[2022-06-06] MEDS: Docusate Sodium 100 MG CAP PO ×2 (11:33→19:46)
[2022-06-06] MEDS: Ondansetron 4 MG TAB PO (12:58)
[2022-06-06 13:45] LABS: Bilirubin Negative (Negative); Blood Trace-lysed (Negative); Clarity Clear (Clear); Glucose Negative (Negative); Ketones 40 mg/dL (Negative); Leukocyte Esterase Negative (Negative); Nitrite Negative (Negative); Specific Gravity 1.025 (1.005-1.025); pH 5.5 (5-8)
[2022-06-06 13:55] LABS: WBC 0-2 HPF (0-5)
[2022-06-06 13:56] LABS: Bacteria Few HPF (Negative); C & S Indicated? C&S Done As Ordered; Casts Negative LPF (Negative); Crystals Negative HPF (Negative); Epithelial Cells Rare HPF (Negative); Mucus Negative (Negative)
--- NOTE | 2022-06-06 18:52 | W.PM.PROGNOT ---
Date of Service Date of service: 06/06/22 Time of Service: 18:54 Assessment and Plan Assessment and plan (1) SIRS (systemic inflammatory response syndrome): Status: Acute Assessment and plan: Fever, leucocytosis. Possible causes: infection related to recent surgery including but not limited to meningitis (The patient does not have ayo meningismus, but the characteristics of his headache are concerning), subdural hematoma, bacteremia, etc. We have ruled out a PNA, UTI, COVID-19. Await CT head. We are attempting to coordinate transfer to [facility] for further workup such as an LP should the CT head be negative. If CT head negative, would start empiric abx to treat meningitis. (2) Headache: Status: Acute Assessment and plan: As above I agree that the description fits CSF leak, and Dr Reed confirms that there was a CSF leak and that it was sealed when the wound closed. At this point, we need to rule out a subdural hematoma and infection; if this workup is negative, consider a blood patch. (3) Acute renal failure: Status: Resolved Assessment and plan: Prerenal, resolved with IV hydration. (4) Hypovolemia due to dehydration: Status: Resolved Assessment and plan: Cr now back to normal. Since PO intake is poor, continue MIVF. (5) Lumbar stenosis without neurogenic claudication: Status: Chronic Assessment and plan: Will need PT once is able to tolerate it. (6) Essential hypertension, benign: Status: Chronic Assessment and plan: BP adequately controlled without BP meds today. Continue to hold antihypertensives. (7) DVT prophylaxis: Status: Acute Assessment and plan: Hold lovenox in anticipation of an LP tomorrow. SCDs. (8) Discharge planning issues: Status: Acute Assessment and plan: Anticipate transfer to [facility] prior to tomorrow am. Subjective Subjective Interval history since last seen: Mr Ocampo continues to report headache, much worse when he sits up, dizziness, nausea. No CP, SOB. Febrile to 38.1 today. Spending a lot of time asleep. States the lights are not bothering him. I spoke with our anesthesia, who do not feel comfortable doing an LP or a blood patch on this patient given his recent surgery. I discussed his case with Dr Harper who is covering for spine surgery at [facility] who spoke with Dr Reed, the neurosurgeon, who did Mr Ocampo's laminectomy/fusion (L1, 2, 3, 4) 11 days ago. He is attempting to coordinate the patient's transfer to the [facility]. He recommended we obtain a CT of the head to r/o a subdural hematoma. If this is negative, we agreed that the patient would be started on empiric abx because the earliest he would be available to do an LP on this patient would be tomorrow morning at [facility]. I have communicated the plan [facility], and provided respective contact info to Dr Londono and Dr Reed. Exam Narrative Exam Narrative: General: Somnolent but arousable elderly male who looks ill, A&Ox2, prefers to keep his eyes closed HEENT: disconjugate gaze, MMM Heart: RRR, no m/r/g Lungs: CTAB Abdomen: soft, nontender, nondistended Extremities: no edema BLEs, able to move all 4 extremities. Objective Last Vital Signs Temp 37.5 C 06/06/22 15:23 Pulse 64 06/06/22 15:23 Resp 16 06/06/22 15:23 BP 131/67 06/06/22 16:23 Pulse Ox 94 06/06/22 15:23 Laboratory Results - last 24 hr 06/06/22 06/06/22 06/06/22 06:11 06:11 07:44 WBC 11.17 H RBC 4.36 Hgb 13.5 Hct 39.3 L MCV 90 MCH 31.0 MCHC 34.4 RDW 13.6 Plt Count 331 MPV 10.0 VBG Lactate Sodium Cancelled 139 Potassium Cancelled Chloride Cancelled 109 H Carbon Dioxide Cancelled 21.1 Anion Gap Cancelled 8.9 BUN Cancelled 52 H Creatinine Cancelled 1.2 D Estimated GFR/1.73 m2 Cancelled 57.96 Glucose Cancelled 98 Calcium Cancelled 8.4 L C-Reactive Protein Procalcitonin Urine Color Urine Clarity Urine pH Ur Specific [place] Urine Protein Urine Ketones Urine Blood Urine Nitrite Urine Bilirubin Urine Urobilinogen Ur Leukocyte Esterase Urine RBC Urine WBC Ur Epithelial Cells Urine Crystals Urine Bacteria Urine Casts Urine Mucus Ur Culture Indicated? Urine Glucose COVID-19 Source SARS-CoV-2 (PCR) 06/06/22 06/06/22 06/06/22 09:02 09:45 09:45 WBC RBC Hgb Hct MCV MCH MCHC RDW Plt Count MPV VBG Lactate 0.9 Sodium 141 Potassium 3.5 Chloride 109 H Carbon Dioxide 21.5 Anion Gap 10.5 BUN 46 H Creatinine 1.2 Estimated GFR/1.73 m2 57.96 Glucose 134 H Calcium 7.7 L C-Reactive Protein 6.45 H Procalcitonin 0.1 Urine Color Urine Clarity Urine pH Ur Specific [place] Urine Protein Urine Ketones Urine Blood Urine Nitrite Urine Bilirubin Urine Urobilinogen Ur Leukocyte Esterase Urine RBC Urine WBC Ur Epithelial Cells Urine Crystals Urine Bacteria Urine Casts Urine Mucus Ur Culture Indicated? Urine Glucose COVID-19 Source Nasal/Nares SARS-CoV-2 (PCR) Negative 06/06/22 12:51 WBC RBC Hgb Hct MCV MCH MCHC RDW Plt Count MPV VBG Lactate Sodium Potassium Chloride Carbon Dioxide Anion Gap BUN Creatinine Estimated GFR/1.73 m2 Glucose Calcium C-Reactive Protein Procalcitonin Urine Color Yellow Urine Clarity Clear Urine pH 5.5 Ur Specific [place] 1.025 Urine Protein Negative Urine Ketones 40 H Urine Blood Trace-lysed H Urine Nitrite Negative Urine Bilirubin Negative Urine Urobilinogen 1.0 H Ur Leukocyte Esterase Negative Urine RBC 3-5 H Urine WBC 0-2 Ur Epithelial Cells Rare Urine Crystals Negative Urine Bacteria Few Urine Casts Negative Urine Mucus Negative Ur Culture Indicated? C&S Done As Ordered Urine Glucose Negative COVID-19 Source SARS-CoV-2 (PCR)
--- NOTE | 2022-06-06 19:21 | DI.VRAD_ITS ---
PROCEDURE INFORMATION: Exam: CT Head Without Contrast Exam date and time: 06/06/2022 6:50 PM Age: 81 years old Clinical indication: Other: Subdural hematoma? TECHNIQUE: Imaging protocol: Computed tomography of the head without contrast. COMPARISON: CT BRAIN NECK CTA 08/04/2021 2:43 PM FINDINGS: Brain: Cerebrum is unremarkable. Tavarez-white matter differentiation is intact. No mass lesion is seen. No mass effect or midline shift. Thalamus is unremarkable. No evidence of hemorrhage. Cerebellum is unremarkable. No posterior fossa mass lesion or mass effect. No pathologic edema. No evidence of cerebellar hemorrhage. Brainstem is unremarkable. No evidence of pontine hemorrhage. No mass effect on the brainstem. Cerebral ventricles: No ventriculomegaly. Paranasal sinuses: Visualized sinuses are unremarkable. No fluid levels. Mastoid air cells: Visualized mastoid air cells are well aerated. Bones/joints: No evidence of fracture. Soft tissues: Unremarkable. IMPRESSION: No evidence of fracture. No evidence of acute intracranial bleed. Dictated and Authenticated by: Gia Kwok MD. Ordering:SEBAS Lan MD
[2022-06-06] MEDS: CEFEPIME 2 GM in Normal Saline 100 ML IVPB (21:02)
[2022-06-06] MEDS: VANCOMYCIN 1,250 MG in Normal Saline 250 ML 166.667 MG IVPB (21:33)
[2022-06-07 02:41] VITALS: BP 181/78; PULSE 64; RESP 18; TEMP 38; O2SAT 98
[2022-06-07] MEDS: CEFEPIME 2 GM in Normal Saline 100 ML IVPB (04:08)
[2022-06-07 06:58] LABS: Abs Immature Grans 0.05 10^3/uL (0.0-0.06); Absolute Basophil Count 0.01 10^3/uL (0.0-0.2); Absolute Eosinophil Count 0.03 10^3/uL (0.0-0.7); Absolute Lymphocyte Count 1.09 10^3/uL (1.2-3.4); Absolute Monocyte Count 0.61 10^3/uL (0.1-0.8); Absolute Neutrophil Count 8.72 10^3/uL (1.2-6.7); Basophils % 0.1; Eosinophils % 0.3; HCT 35.5 % (40.0-50.0); HGB 11.7 g/dL (13.5-17.5); Immature Grans % 0.5; Lymphocytes % 10.4; MCH 29.9 pg (27.0-33.0); MCV 91 fL (80-95); Monocytes % 5.8; Neutrophils % 82.9; Platelet Count 288 10^3/uL (130-400); RBC 3.91 10^6/uL (4.36-5.78); RDW 13.1 % (11.8-14.1); RDW-SD 42.8 fL; WBC 10.51 10^3/uL (4.4-10.8)
[2022-06-07 07:07] LABS: Anion Gap 8.2 mmol/L (3-11); BUN 30 mg/dL (7-18); CO2 24.8 mmol/L (21.0-32.0); CREATININE 1.1 mg/dL (0.70-1.30); Calcium 8.2 mg/dL (8.5-10.1); Chloride 105 mmol/L (98-107); Glucose 103 mg/dL (74-106); Magnesium 2.1 mg/dL (1.8-2.4); Potassium 3.6 mmol/L (3.5-5.1); Sodium 138 mmol/L (136-145)
[2022-06-07] MEDS: Ondansetron 4 MG TAB PO (07:26)
[2022-06-07 07:33] LABS: Lab Add On Test DONE
[2022-06-07 07:43] VITALS: BP 166/68; PULSE 51; RESP 16; TEMP 38.8; O2SAT 96
[2022-06-07 07:46] LABS: C-Reactive Protein 7.56 mg/dL (0.0-0.3)
[2022-06-07] MEDS: Normal Saline Flush 10 ML SYR IVP ×2 (08:04→10:09)
[2022-06-07 08:05] VITALS: TEMP 38.8
[2022-06-07] MEDS: Acetaminophen 500 MG TAB 1000 MG PO (08:05)
[2022-06-07] MEDS: Cyanocobalamin 500 MCG TAB 1000 MCG PO (08:05)
[2022-06-07] MEDS: Simvastatin 20 MG TAB PO (08:05)
[2022-06-07] MEDS: Carvedilol 12.5 MG TAB PO (08:05)
[2022-06-07] MEDS: Docusate Sodium 100 MG CAP PO (08:05)
[2022-06-07] MEDS: Polyethylene Glycol 3350 17 GM PACKET PO (08:05)
--- NOTE | 2022-06-07 09:00 | PT.INNT ---
PT Notes Visit Reasons: AGATA, CSF leak Pt has been dizzy, vomiting and febrile 38.8. PT on hold per nursing.
--- NOTE | 2022-06-07 09:02 | DSE_ITS ---
Date of service: 06/07/22 Time of Service: 09:02 DS: Diagnosis Discharge Diagnosis (1) Sepsis: Status: Acute (2) Meningitis after procedure: Status: Suspected (3) Headache: Status: Acute Asessment and Plan: Postural (worse when sitting up) (4) Nausea: Status: Acute (5) S/P laminectomy with spinal fusion: Status: Acute (6) Encephalopathy acute: Status: Acute (7) Acute renal failure: Status: Resolved (8) Hypovolemia due to dehydration: Status: Resolved (9) Lumbar stenosis without neurogenic claudication: Status: Chronic (10) Essential hypertension, benign: Status: Chronic Discharge Plan Disposition Patient Disposition: [facility] Condition: Improving Discharge Details Reason For Visit: AGATA, CSF leak Admit Date/Time: 06/06/22 19:14 Admit Provider: Nakul Cobb Attending Provider: Nakul Cobb Primary Care Provider: Shayy oPon [facility] Course Hospital Course: Mr Ocampo is an 81 year old male who is s/p lumbar laminectomy and fusion of L1, 2, 3, and [address] [facility] (Dr Reed), as well as h/o CAD, HTN, GERD who was admitted to [facility] hospitalist service on 06/04/22 after being brought to [facility] ED for an evaluation from [facility] where he was recovering after surgery for persistent positional headaches (worse when sitting up, nuchal and traveling anteriorly to the top of the head), nausea with poor PO intake at the fci. There was also a report of dizziness. The patient reported some confusion since surgery. Nursing at [facility] had reported leaking CSF to the point of soaking bedsheets. His blood pressure was found to be 60/40 by EMS while mentating. His BP was 70/20 and pulse was 50 in the ED. He was found to have a Cr of 5.0. He had a white count of 11.58. His BP responded well to IV hydration. The surgical wound was felt to be healing well in the ED, and no leakage was reported there (nor has it been reported since). Septic workup was initiated with blood culture (NGTD on 06/04/22) and a negative UA and CXR. While his AGATA and hypotension had resolved with IV hydration, his other symptoms (positional headache, mild encephalopathy - A&Ox2, fatigue, nausea) remained. On 06/06/22, the patient started to have fevers of up to 38.8. Septic workup was repeated (CXR negative, UA negative, blood cultures redrawn on 06/06/22 - pending). COVID-19 PCR was repeated and negative. LP was requested from [facility] anesthesia but was felt to be too high risk to be performed by SET PAINTER at our facility given his recent lumbar laminectomy. His CT of the head w/o contrast on 06/06/22 was negative. He was initiated on vancomycin and cefepime on 06/06/22 empirically for meningitis coverage. We have been in communication with the orthopedic/spine service at [facility] and, given the fevers and the character of his headache and persistent nausea, the patient is felt to benefit from a workup of a possible post-surgical infection including an LP by spine surgery, unavailable at our facility. The case was discussed with Dr Reed of spine surgery at [facility] as well as with Dr Flaherty of the hospitalist service, who agrees to accept the patient after an evaluation and likely LP by Dr Reed at [facility] ED. The patient consents to transfer and is medically stable for transfer with his latest BP being 166/68. We appreciate the assistance of the [facility] clinical team and wish the patient patient well. Care for patient as well as completion of his transfer summary took 45 minutes to complete. Please, see the patient's MAR for list of this patient's current inpatient medications. The list of medications below reflects his outpatient prescri ptions. Home Meds and New Rx's Prescriptions: No Action simvastatin 20 mg tablet 20 mg PO DAILY Qty: 90 3RF carvedilol 12.5 mg tablet 12.5 mg PO BID Qty: 180 3RF Rx Instructions: must administer with a meal/food lisinopril 40 mg tablet 40 mg PO DAILY Qty: 90 3RF naproxen sodium 220 MG tablet 220 mg PO DAILY PRN cyanocobalamin (vitamin B-12) [Vitamin B-12] 1,000 MCG tablet 1,000 mcg PO DAILY hydrochlorothiazide 25 mg tablet 25 mg PO DAILY Qty: 90 3RF aspirin [Aspir-81] 81 MG tablet,delayed release (DR/EC) 81 mg PO DAILY ondansetron HCl 4 mg tablet 1 tab PO Q8H PRN PRN (Reason: Vomiting) acetaminophen 500 mg Tablet 1,000 mg PO TID Discharge Instructions Activity:: bedrest, turn Q2H Equipment/Supplies:: No Equipment Needed Diet:: As Tolerated Discharge Orders Discharge Orders: Discharge Order (Routine); Ordered 06/07/22 Ordered By: Edyta Apodaca DS: Summary Time Spent with Patient providing and/or coordinating discharge services: Greater than 30 minutes Status at Discharge Functional status at discharge: bed bound Overall status at discharge: patient is not back to baseline Mental Status: other (A&Ox2, somnolent) Speech and Movement: slowed movement Mood: other (A&Ox2, somnolent) Affect: blunted Exam Narrative Exam Narrative: General: Somnolent but arousable elderly male who looks ill, A&Ox2, prefers to keep his eyes closed - has a washcloth over his eyes HEENT: disconjugate gaze, MMM Heart: RRR, no m/r/g Lungs: CTAB Abdomen: soft, nontender, nondistended Extremities: no edema BLEs, able to move all 4 extremities. Psych Mental Status: other (A&Ox2, somnolent) Speech and Movement: slowed movement Mood: other (A&Ox2, somnolent) Affect: blunted DS: Data Vitals/I&O Vitals and I&O: Vital Signs Temperature 38.8 C H 06/07/22 08:05 Temperature Source Tympanic 06/07/22 07:43 Pulse 51 L 06/07/22 07:43 Pulse Rhythm Regular 06/06/22 23:05 Pulse 55 L 06/04/22 18:31 Respiratory Rate 16 06/07/22 07:43 Respiratory Effort Non-Labored 06/06/22 23:05 Respiratory Depth Normal 06/06/22 23:05 Respiratory Pattern Normal 06/06/22 23:05 Blood Pressure 166/68 H 06/07/22 07:43 Blood Pressure Mean 67 06/04/22 18:31 Blood Pressure Position Sitting 06/04/22 16:56 Pulse Oximetry 96 06/07/22 07:43 Oxygen Delivery Method Room Air 06/07/22 07:43 Oxygen Flow Rate 0 06/07/22 07:43 Pain Level 0 06/07/22 07:17 Comment 06/07/22 08:10 Intake & Output 06/06/22 06/06/22 06/07/22 11:59 23:59 11:59 Intake Total 1446.667 / 2821.667 1375 / 2821.667 1000 / 1000 Output Total 1900 / 3603 1703 / 3603 571 / 571 Balance -453.333 / -781.333 -328 / -781.333 429 / 429 Weight 75.8 kg Intake: IV 1446.667 / 2731.667 1285 / 2731.667 1000 / 1000 Oral 90 / 90 Output: Urine 1900 / 3300 1400 / 3300 550 / 550 Post Void Residual 303 / 303 Other: Urine Color Yellow Yellow Yellow Straw Urine Appearance Clear Clear Clear Urine Odor None None None Comment dry at this time Voiding Methods Urinal Urinal Diaper Incontinent Data Completed and Pending Completed studies during hospitalization [Text1]: CXR 06/04/22: No acute pulmonary findings. CXR 06/06/22: No acute pulmonary findings. CT head w/o contrast 06/06/22: No evidence of fracture. No evidence of acute intracranial bleed. Labs on day of discharge: Labs from last 24 hours 06/07/22 06/07/22 06/07/22 06:00 06:00 06:00 WBC 10.51 RBC 3.91 L Hgb 11.7 L Hct 35.5 L MCV 91 MCH 29.9 MCHC 33.0 RDW 13.1 Plt Count 288 MPV 10.0 Immature Gran % 0.5 Neutrophils % 82.9 Lymphocytes % 10.4 Monocytes % 5.8 Eosinophils % 0.3 Basophils % 0.1 Nucleated RBC % 0.0 Absolute Neutrophils 8.72 H Absolute Lymphocytes 1.09 L Absolute Monocytes 0.61 Absolute Eosinophils 0.03 Absolute Basophils 0.01 VBG Lactate Sodium Potassium Chloride Carbon Dioxide Anion Gap BUN Creatinine Estimated GFR/1.73 m2 Glucose Calcium Magnesium C-Reactive Protein 7.56 H Procalcitonin Urine Color Urine Clarity Urine pH Ur Specific [place] Urine Protein Urine Ketones Urine Blood Urine Nitrite Urine Bilirubin Urine Urobilinogen Ur Leukocyte Esterase Urine RBC Urine WBC Ur Epithelial Cells Urine Crystals Urine Bacteria Urine Casts Urine Mucus Ur Culture Indicated? Urine Glucose COVID-19 Source SARS-CoV-2 (PCR) Add-On Test Request DONE 06/07/22 06/06/2206/06/22 06:00 12:51 09:45 WBC RBC Hgb Hct MCV MCH MCHC RDW Plt Count MPV Immature Gran % Neutrophils % Lymphocytes % Monocytes % Eosinophils % Basophils % Nucleated RBC % Absolute Neutrophils Absolute Lymphocytes Absolute Monocytes Absolute Eosinophils Absolute Basophils VBG Lactate 0.9 Sodium 138 Potassium 3.6 Chloride 105 Carbon Dioxide 24.8 Anion Gap 8.2 BUN 30 H Creatinine 1.1 Estimated GFR/1.73 m2 >= 60.00 Glucose 103 Calcium 8.2 L Magnesium 2.1 C-Reactive Protein Procalcitonin 0.1 Urine Color Yellow Urine Clarity Clear Urine pH 5.5 Ur Specific [place] 1.025 Urine Protein Negative Urine Ketones 40 H Urine Blood Trace-lysed H Urine Nitrite Negative Urine Bilirubin Negative Urine Urobilinogen 1.0 H Ur Leukocyte Esterase Negative Urine RBC 3-5 H Urine WBC 0-2 Ur Epithelial Cells Rare Urine Crystals Negative Urine Bacteria Few Urine Casts Negative Urine Mucus Negative Ur Culture Indicated? C&S Done As Ordered Urine Glucose Negative COVID-19 Source SARS-CoV-2 (PCR) Add-On Test Request 06/06/22 06/06/22 09:45 09:02 WBC RBC Hgb Hct MCV MCH MCHC RDW Plt Count MPV Immature Gran % Neutrophils % Lymphocytes % Monocytes % Eosinophils % Basophils % Nucleated RBC % Absolute Neutrophils Absolute Lymphocytes Absolute Monocytes Absolute Eosinophils Absolute Basophils VBG Lactate Sodium 141 Potassium 3.5 Chloride 109 H Carbon Dioxide 21.5 Anion Gap 10.5 BUN 46 H Creatinine 1.2 Estimated GFR/1.73 m2 57.96 Glucose 134 H Calcium 7.7 L Magnesium C-Reactive Protein 6.45 H Procalcitonin Urine Color Urine Clarity Urine pH Ur Specific [place] Urine Protein Urine Ketones Urine Blood Urine Nitrite Urine Bilirubin Urine Urobilinogen Ur Leukocyte Esterase Urine RBC Urine WBC Ur Epithelial Cells Urine Crystals Urine Bacteria Urine Casts Urine Mucus Ur Culture Indicated? Urine Glucose COVID-19 Source Nasal/Nares SARS-CoV-2 (PCR) Negative Add-On Test Request 06/06/22 12:51 Urine - Voided Urine Culture - Pending 06/06/22 10:40 Blood Blood Culture - Pending 06/06/22 09:45 Blood Blood Culture - Pending Preliminary micro results at discharge 06/04/22 17:35 Blood Culture - Preliminary Blood NO GROWTH 48 HOURS 06/04/22 17:00 Blood Culture - Preliminary Blood NO GROWTH 48 HOURS 06/06/22 12:51 Urine Culture - Pending Urine - Voided 06/06/22 10:40 Blood Culture - Pending Blood 06/06/22 09:45 Blood Culture - Pending Blood PFSH All Active Problems (Updated 06/07/22 @ 09:31 by Edyta Apodaca MD) Nausea (Acute) Encephalopathy acute (Acute) S/P laminectomy with spinal fusion (Acute) Sepsis (Acute) SIRS (systemic inflammatory response syndrome) (Acute) Discharge planning issues (Acute) DVT prophylaxis (Acute) Headache (Acute) BAUTISTA (dyspnea on exertion) (Acute) Vertigo (Acute) Wheeze (Acute) Dizziness (Acute) Medicare annual wellness visit, subsequent (Acute) Anxiety (Chronic) Other and unspecified hyperlipidemia (Acute 01/26/12) CAD; LDL baseline 151 Memory loss (Acute 03/23/13) 2012 MMSE 27/30 Low back pain (Acute 05/24/13) xray 05/2013 neg DJD; chiropractor Rx MRI 06/01/16 disc herniation L2-3; spinal stenosis L3-4; Dr Burks [facility] Imbalance (Acute 02/27/16) Lumbar stenosis without neurogenic claudication (Chronic) 04/08/22 [facility], Dr Reed, plan for lumbar laminectomy and fusions Gastroesophageal reflux disease (Acute 01/26/12) Essential hypertension, benign (Chronic 08/28/13) Depressive disorder, not elsewhere classified (Chronic 01/26/12) Cough (Acute 09/05/12) spirometry 08/2012 WNL Chronic rhinitis (Acute 01/26/12) Chronic ischemic heart disease, unspecified (Acute 01/26/12) hx ACS ?[place] and stent [facility]; neg Holter 06/2014 Cholelithiasis without obstruction (Acute 01/26/12) BPH w/o urinary obs/LUTS (Acute 01/26/12) B12 deficiency (Acute 03/23/13) Surgical History Appendectomy Cholecystectomy Tonsillectomy and adenoidectomy Family History Mother , [place] at age 82. Essential hypertension Heart disease [place] Father , unknown at age 40. No problems noted. 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
[2022-06-07 09:05] VITALS: TEMP 37.4
[2022-06-07 09:40] VITALS: BP 121/60; PULSE 49; RESP 16; TEMP 37.4; O2SAT 92
[2022-06-07 09:44] VITALS: O2SAT 96; O2SAT 97
[2022-06-07] MEDS: MORPHine 2 MG/ML SYR IVP (10:08)
[2022-06-07] MEDS: Normal Saline 1,000 ML 100 ML IV (10:08)
[2022-06-07] MEDS: Pantoprazole 40 MG VIAL IVP (10:08)
--- NOTE | 2022-06-07 10:53 | NUR.NOTE ---
Nursing Note: At 1050 on 06/07/22, this RN called the Emergency Department at [facility] to attempt to give a nurse to nurse report on the pt. Suha (woman this RN spoke to on the phone) stated that there wasn't a nurse available, took down the Med/Surg number, and stated that as soon as a nurse was available, that they would call to get a nurse to nurse report. RN will reassess as necessary.
--- NOTE | 2022-06-08 18:00 | INDS_ITS ---
Date of service: 06/08/22 PT Notes Visit Reasons: AGATA, CSF leak Physical Therapy Discharge Summary Date: 06/08/2022 Dates of Service: 06/05/2022 only Referring Doctor: [place] Eduardo Londono MD PT Orders: PT CONSULT: Eval/Treat Precautions: Fall. Standard. Activity as tolerated. ? Patient Profile/Admitting Diagnosis:? Jaime is an 81-year-old male with past medical history significant for lumbar stenosis with neurogenic claudication who presented to the ER 06/04/2022 with report of weakness and hypotension in the low 60s over 40s mmHg on admission.? Patient is status post lumbar laminectomy at [facility] last week and comes in with diagnoses of hypovolemia due to dehydration, acute renal failure, headache, and essential hypertension. PMHX: All Active Problems?(Updated 06/05/22 @ 00:41 by Nakul Cobb) Discharge planning issues (Acute) DVT prophylaxis (Acute) Headache (Acute) Hypovolemia due to dehydration (Acute) Acute renal failure (Acute) BAUTISTA (dyspnea on exertion) (Acute) Vertigo (Acute) Wheeze (Acute) Dizziness (Acute) Medicare annual wellness visit, subsequent (Acute) Anxiety (Chronic) Other and unspecified hyperlipidemia (Acute 01/26/12) CAD; LDL baseline 151 Memory loss (Acute 03/23/13) 2012 MMSE 27/30 Low back pain (Acute 05/24/13) xray 05/2013 neg DJD; chiropractor Rx MRI 06/01/16 disc herniation L2-3; spinal stenosis L3-4; Dr Burks [facility] Imbalance (Acute 02/27/16) Lumbar stenosis without neurogenic claudication (Chronic) 04/08/22 [facility], Dr Reed, plan for lumbar laminectomy and fusions Gastroesophageal reflux disease (Acute 01/26/12) Essential hypertension, benign (Acute 08/28/13) Depressive disorder, not elsewhere classified (Chronic 01/26/12) Cough (Acute 09/05/12) spirometry 08/2012 WNL Chronic rhinitis (Acute 01/26/12) Chronic ischemic heart disease, unspecified (Acute 01/26/12) hx ACS ?[place] and stent [facility]; neg Holter 06/2014 Cholelithiasis without obstruction (Acute 01/26/12) BPH w/o urinary obs/LUTS (Acute 01/26/12) B12 deficiency (Acute 03/23/13) Surgical History? Appendectomy Cholecystectomy Tonsillectomy and adenoidectomy Recent Laminectomy Social History/Home Situation: Lives alone in a private home with 4 steps to enter.? Has a flight of steps to the second floor where his bedroom is.? Ambulated independently using single- point cane indoors and outdoors.? Equipment Owned/DME: SPC Subjective: NT. See most recent POLITICAL ORGANIZER notes. Objective: General Observation: NT. See most recent POLITICAL ORGANIZER notes. Mental Status: NT. See most recent POLITICAL ORGANIZER notes. Pain: NT. See most recent POLITICAL ORGANIZER notes. Vital Signs: NT. See most recent POLITICAL ORGANIZER notes. ROM: Right Upper Extremity: ? Shoulder Flexion WFL. Shoulder abduction WFL. Elbow flexion WFL. Wrist flexion WFL. Functional opening and closing of hand WFL. Left Upper Extremity:? Shoulder Flexion WFL. Shoulder abduction WFL. Elbow flexion WFL. Wrist flexion WFL. Functional opening and closing of hand WFL. Right Lower Extremity: Hip flexion WFL. Hip abduction WFL. Knee flexion WFL. Ankle dorsiflexion -20 degrees. Ankle plantarflexion 45 degrees to 20 degrees. Left Lower Extremity: Hip flexion WFL. Hip abduction WFL. Knee flexion WFL. Ankle dorsiflexion to neutral only. Ankle plantarflexion WFL. Strength: Right Upper Extremity: Shoulder flexors 4-/5. Shoulder abductors 4-/5. Elbow flexors 4-/5. Elbow extensors 4-/5. Medicare Sales Executive strong. Left Upper Extremity: Shoulder flexors 4-/5. Shoulder abductors 4-/5. Elbow flexors 4-/5. Elbow extensors 4-/5. Medicare Sales Executive strong. Right Lower Extremity: Hip flexors 3+/5. Hip abductors 3+/5. Knee flexors 4-/5. Knee extensors 4-/5. Ankle dorsiflexors 3-/5. Ankle plantarflexors 3-/5. Left Lower Extremity: Hip flexors 3+/5. Hip abductors 3+/5. Knee flexors 4-/5. Knee extensors 4-/5. Ankle dorsiflexors 3-/5. Ankle plantarflexors 4-/5. Bed Mobility/Transfers: Rolling minimal assist Supine to sit contact-guard assist Sit to supine minimal assist to left to B LE Sit to stand with contact-guard assist, cueing required to use both hands for support and for slow ascent Stand to sit with contact-guard assist, cueing required to use both hands for support and for slow descent Bed to toilet seat minimal assist Gait: Instructed patient with level surface ambulation of 20 feet x 2 requiring minimal assist. Tere decreased. Step height in R decreased. Step length decreased.? Balance: Static Sitting: Fair Dynamic Sitting: Fair Static Standing: Fair Dynamic Standing: Fair Assessment: Decline in mobility requiring use of FWW to maximize safety.? R dorsiflexion decreased which patient states he has had for quite a while.? B UE strength and range symmetric.? Sensation of spinning and frontal headache limited safety of mobility performance today.? Gait unstable requiring minimal assist even with walker use.? Ambulated patient for essential ADLS only -- from bed to toilet seat to void urine,? and then back.? Will wait on updates from hospitalist regarding patient's postoperative status before mobility progression is made.? Will await updates from back surgeon and clearance from hospitalist to do Arbela- Hallpike maneuver and subsequent corrective maneuver.? Will need to return to SNF to achieve safe mobility level before returning home alone to his apartment. Patient presents with clinical signs and symptoms consistent with current/admitting diagnoses that have resulted to mobility limitations, gait instability, generalized weakness, and overall ADL decline as demonstrated by the following impairment level findings: 1.? Decreased strength to B UE, B hip/knees and R ankle muscle groups 2.? Impaired standing balance 3.? Impaired activity tolerance 4.? Limitation of joint range of motion in R ankle DF 5.? Increasing spinning sensation in the sitting and standing position 6.? Persistent postoperative frontal headache at 5-04/17 Impairments are contributing to the following functional limitations: 1.? Decline in bed mobility skills 2.? Decline in transfer skills 3.? Difficulty with ambulation without assistive device and physical assistance 4.? Increased completion time for mobility ADL performance 5.? Increased risk for falls 6.? Difficulty with managing steps alone safely Patient is assessed as a 16435 moderate complexity based on the following: History: 81-year-old male with past medical history as indicated above Examination: Demonstrable impairment in strength, balance, and mobility level with underlying impairments and functional limitations as exhibited above as well as deficit score of 47% utilizing the [facility] Mobility Inpatient Short Form Presentation: Evolving Decision Makin moderate complexity Goals: Goals X1 week 1. Supine-Sit independent NOT MET 2. Sit-Supine independent NOT MET 3. Sit-Stand independent NOT MET 4. Stand-Sit independent with SPC NOT MET 5. Bed-Chair independent with SPC NOT MET 6. Chair-Bed independent with SPC NOT MET 7. Independent gait on level surface with use of SPC for at least 300 feet without report of pain nor dyspnea NOT MET 8. Independent stair negotiation while holding onto B rails for at least 12 steps without report of pain nor dyspnea NOT MET 9. Good static and dynamic standing balance/tolerance NOT MET DISCHARGE RECOMMENDATIONS: [] ? Home with no services [] [] ? Home with services [specify] [] ? Home with outpatient PT [] [X] ? SNF for continued rehabilitation.? Patient will benefit from residential facility placement for continued skilled physical therapy services in order to progress mobility level, strength, and balance in preparation for a safe discharge to home. [] ? [facility] [] [] ? SNF versus LTC based on ability to participate and progress [] TREATMENT CODE/TIME: NC Thank you for the opportunity to participate in the care of this patient. Sydney Ingram PT, DPT, CLT [facility] [place], [place]
== END 2022-06-07 10:37 | disposition short-term general hospital (02) | DRG 871 ==
LOC: ER 21:15 → MS 22:18
PROVIDERS: Family Medicine; Internal Medicine; Admitting Provider Family Medicine; Emergency Provider Emergency Medicine; PCP Nurse Practitioner; Visit Provider Family Medicine
DX: A41.9 Sepsis, unspecified organism (principal); G00.9 Bacterial meningitis, unspecified; N17.9 Acute kidney failure, unspecified; G93.49 Other encephalopathy; E86.0 Dehydration; F41.9 Anxiety disorder, unspecified; E78.5 Hyperlipidemia, unspecified; M54.50 Low back pain, unspecified; R41.3 Other amnesia; M48.061 Spinal stenosis, lumbar region without neurogenic claudication; K21.9 Gastro-esophageal reflux disease without esophagitis; F32.A Depression, unspecified; E53.8 Deficiency of other specified B group vitamins; Z87.891 Personal history of nicotine dependence; R51.9 Headache, unspecified; I11.9 Hypertensive heart disease without heart failure; R11.0 Nausea
CPT/HCPCS: 36415; 80048; 80053; 84145; 85027; 87040; 87081; 87635; 93005; 96361; 96374; 97162; 97530; 99284; 99285; J1650; 70450; 71045; 81003; 81015; 83605; 83735; 84484; 85025; 86140; 87086; 93010; 99233; 99239; G0378; J1885; J2270; J8597

== ENCOUNTER 2022-08-07 02:02 | Outpatient (CLI) | payer MEDICARE, OTHER, SELFPAY ==
[2022-08-07 10:32] LABS: BUN 29 mg/dL (7-18); CREATININE 1.2 mg/dL (0.70-1.30); Calcium 9.3 mg/dL (8.5-10.1); Chloride 105 mmol/L (98-107); Estimated GFR 60.38 (mL/min/1.73m2); Glucose 107 mg/dL (74-106); Potassium 4.2 mmol/L (3.5-5.1); Sodium 141 mmol/L (136-145)
== END 2022-08-07 02:03 | disposition home or self-care (01) ==
LOC: LBO 02:02
PROVIDERS: Family Medicine; PCP Nurse Practitioner; Visit Provider Nurse Practitioner
DX: E87.1 Hypo-osmolality and hyponatremia (principal)
CPT/HCPCS: 36415; 80048

== ENCOUNTER → 2022-08-24 09:44 | Outpatient (BNVA) | payer MEDICARE, OTHER, SELFPAY | PROVIDERS: PCP Nurse Practitioner; Referring Provider Nurse Practitioner; Visit Provider Internal Medicine Cardiovascular Disease | DX: R05.9 Cough, unspecified (principal); T46.4X5A Adverse effect of angiotensin-converting-enzyme inhibitors, initial encounter; I25.9 Chronic ischemic heart disease, unspecified; I10 Essential (primary) hypertension | CPT/HCPCS: 99214 ==

== ENCOUNTER → 2022-12-15 09:57 | Outpatient (BNVA) | payer MEDICARE, OTHER, SELFPAY | PROVIDERS: PCP Nurse Practitioner; Referring Provider Nurse Practitioner; Visit Provider Internal Medicine Cardiovascular Disease | DX: I25.9 Chronic ischemic heart disease, unspecified (principal); I10 Essential (primary) hypertension | CPT/HCPCS: 99213 ==

== ENCOUNTER 2023-01-14 03:09 | Outpatient (CLI) | payer MEDICARE, OTHER, SELFPAY ==
[2023-01-14 12:27] LABS: HCT 42.8 % (40.0-50.0); HGB 13.8 g/dL (13.5-17.5); MCHC 32.2 % (32.0-36.0); MCV 90 fL (80-95); MPV 9.6 fL (8.0-11.0); Platelet Count 243 10^3/uL (130-400); RBC 4.76 10^6/uL (4.36-5.78); RDW 14.4 % (11.8-14.1); RDW-SD 46.6 fL
[2023-01-14 13:43] LABS: ALT 25 U/L (16-63); AST 16 U/L (15-37); Albumin 3.8 g/dL (3.4-5.0); Alkaline Phosphatase 95 U/L (46-116); Anion Gap 5.5 mmol/L (3-11); BUN 24 mg/dL (7-18); Bilirubin, Total 0.9 mg/dL (0.2-1.0); CO2 30.5 mmol/L (21.0-32.0); CREATININE 1.3 mg/dL (0.70-1.30); Calcium 9.2 mg/dL (8.5-10.1); Chloride 106 mmol/L (98-107); Estimated GFR 54.51 (mL/min/1.73m2); Glucose 90 mg/dL (74-106); Potassium 4.8 mmol/L (3.5-5.1); Sodium 142 mmol/L (136-145); TSH (W/Ref FT4) 2.51 uIU/mL (0.36-3.74); Total Protein 7.5 g/dL (6.4-8.2); Vitamin B12 1013 pg/mL (193-986)
== END 2023-01-14 03:10 | disposition home or self-care (01) ==
LOC: LBO 03:09
PROVIDERS: PCP Nurse Practitioner; Visit Provider Nurse Practitioner
DX: D64.9 Anemia, unspecified (principal); F32.9 Major depressive disorder, single episode, unspecified; E53.8 Deficiency of other specified B group vitamins; R41.3 Other amnesia
CPT/HCPCS: 36415; 80053; 85027; 82607; 84443

== ENCOUNTER 2023-02-16 00:43 | Outpatient (CLI) | payer MEDICARE, OTHER, SELFPAY ==
--- NOTE | 2023-02-16 07:45 | DI.US_ITS ---
Exam(s) US ABDOMEN EXAM: US ABDOMEN CLINICAL HISTORY: Intermittent RUQ PAIN for mos,H/O CCY,R10.11 TECHNIQUE: Ultrasound of complete upper abdomen performed using standard protocol. COMPARISON: US US ECHOCARDIOGRAM from 02/28/2021 FINDINGS: There is no ascites evident. LIVER: There are no hepatic lesions evident nor obvious dilatation of intrahepatic ducts. GALLBLADDER/BILIARY: Gallbladder is surgically absent. The common hepatic duct isnot dilated, measuring 6mm at the level of keli hepatis. PANCREAS: There is no evidence of pancreatic mass nor dilatation of the pancreatic duct. SPLEEN: The spleen is not enlarged and there are no intrasplenic lesions evident. KIDNEYS:Both kidneys exhibit normal size. There is an exophytic cyst off the superior pole the right kidney which measures approximately 1.2 x 1.1 cm no other focal right kidney findings. There is a 1. 9 x 1.7 x 1.5 cm non cystic appearing mass in superior aspect of the left kidney. Requires further in vestigation. No calculi. No hydronephrosis ABDOMINAL AORTA: There is no evidence of abdominal aortic aneurysm. IVC: Normal diameter where visualized. IMPRESSION: 1. There is a 1.9 x 1.7 x 1.5 cm non cystic appearing mass in the superior aspect of the left kidney . CT scan recommended. Suspicious for possible neoplasm. 2. There is a benign 1.2 cm cyst in the superior pole of the opposite-right kidney. 3. Gallbladder surgically absent. Biliary tree is not dilated. DATA REPOSITORY:
== END 2023-02-16 01:03 ==
LOC: DI 00:43
PROVIDERS: PCP Nurse Practitioner; Visit Provider Nurse Practitioner
DX: C64.1 Malignant neoplasm of right kidney, except renal pelvis; C64.2 Malignant neoplasm of left kidney, except renal pelvis
CPT/HCPCS: 76700

== ENCOUNTER 2023-03-11 01:15 | Outpatient (CLI) | payer MEDICARE, OTHER, SELFPAY ==
--- NOTE | 2023-03-11 07:00 | DI.CT_ITS ---
Exam(s) CT ABDOMEN WO/W EXAM: CT ABDOMEN WO/W CLINICAL HISTORY: 1.9 x 1.7 x 1.5 cm non cystic mass L kidney,f/u abnl us,r93.5,n28.89 TECHNIQUE: Imaging Protocol: Axial computed tomography images with coronal and sagittal reformatted images were created and reviewed CONTRAST MATERIAL: Intravenous: Omnipaque 350 contrast volume:100 mL Oral: Yes COMPARISON: CT CT CHEST WO from 09/03/2021 US US ABDOMEN from 02/16/2023 FINDINGS: ABDOMEN: Lung Bases: There is dependent atelectasis present. Liver: Normal density. No measurable mass. Portal, Superior Mesenteric, and Splenic Veins: Unremarkable. Gallbladder and Biliary Tract: Status post cholecystectomy. No significant biliary ductal dilatation . Pancreas: Normal density, no abnormal calcifications or inflammatory process. Spleen: Normal. Adrenals: No masses seen. Kidneys: Normal size, contour and axis. No radiodense stones or obstructive uropathy. There is a 1.2 cm simple cyst in the superior pole of the right kidney. There are few tiny hypodensities in the bot h kidneys which are too small for further characterization. There is a 1.8 x 1.8 cm heterogeneously enhancing mass arising from the superior pole of the left kidney. Findings are most suggestive of a primary neoplasm. Abdominal Aorta: Abdominal portion non-dilated. Atherosclerosis is present. Bowel: No obstruction or bowel wall thickening. There is diverticulosis of the colon, but no evidence of acute diverticulitis. Peritoneal Cavity: No ascites, collection or mesenteric inflammatory response. No free air. Lymph Nodes: Within normal limits. Bones: Postsurgical changes are seen in the lumbar spine. No suspicious lytic or sclerotic lesions a re present. Soft Tissues: Unremarkable. IMPRESSION: 1. There is a 1.8 x 1.8 cm heterogeneously enhancing mass in the superior pole of the left kidney margarita picious for primary renal neoplasm such as a renal cell carcinoma. 2. Simple bilateral renal cysts. 3. No evidence of abdominal metastatic disease. RADIATION DOSE DELIVERED: 1,620mGy.cm Total DLP DATA REPOSITORY: All CT scans at this facility are submitted to the National Radiology Data Registry (NRDR) Dose Index Registry (DIR) with the [employer] (ACR). RADIATION OPTIMIZATION: All CT scans at this facility use at least one of these dose optimization te chniques: automated exposure control; mA and/or kV adjustment per patient size (includes targeted exa ms where dose is matched to clinical indication); or iterative reconstruction.
[2023-03-11] MEDS: Barium Sulfate 2% W/V-Creamy Vanilla Smoothie 450 ML BTL PO (09:00)
[2023-03-11] MEDS: Omnipaque 350 MG/ML 500 ML BTL-Imaging package IJ (09:40)
[2023-03-11] MEDS: Normal Saline - Diluent 50 ML VIAL IJ (09:40)
== END 2023-03-11 01:35 ==
LOC: DI 01:15
PROVIDERS: PCP Nurse Practitioner; Visit Provider Nurse Practitioner
DX: N28.89 Other specified disorders of kidney and ureter (principal); R93.5 Abnormal findings on diagnostic imaging of other abdominal regions, including retroperitoneum
CPT/HCPCS: 74170

== ENCOUNTER 2023-05-06 21:38 | Outpatient (REF) | payer MEDICARE, OTHER, SELFPAY ==
[2023-05-06 21:26] LABS: Source Nasal/Nares
[2023-05-06 22:16] LABS: COVID-19 PCR Negative (Negative)
== END 2023-05-06 21:39 | disposition home or self-care (01) ==
LOC: LBN 21:38
PROVIDERS: PCP Nurse Practitioner; Visit Provider Physician Assistant Medical
DX: R05.9 Cough, unspecified (principal)
CPT/HCPCS: 87635

== ENCOUNTER → 2023-09-13 09:51 | Outpatient (BNVA) | payer MEDICARE, OTHER, SELFPAY | PROVIDERS: PCP Nurse Practitioner; Referring Provider Nurse Practitioner; Visit Provider Internal Medicine Cardiovascular Disease | DX: I10 Essential (primary) hypertension (principal); I25.9 Chronic ischemic heart disease, unspecified | CPT/HCPCS: 99213 ==

== ENCOUNTER 2023-11-16 14:34 | Emergency (ER) | payer MEDICARE, OTHER, SELFPAY ==
[2023-11-16 14:42] VITALS: BP 161/51; PULSE 57; RESP 16; TEMP 36.6; O2SAT 97
--- NOTE | 2023-11-16 15:44 | ED.GENADUL_ITS ---
HPI General Stated Complaint: RespSymp Mode of arrival: ambulatory. VIELKA: 4 Date/Time Provider Initiated Documentation: 11/16/23 14:47. Limitations to Documentation: no limitations. Information obtained by: patient. History of Present Illness runny nose and cough mild day(s) (6) other (improving) No relieving factors improve symptom(s), No exacerbating factors reported no other symptoms.; denies chest pain, fever/chills and shortness of breath none Related Data Home Medications Medication Instructions Recorded Confirmed naproxen sodium 220 mg tablet 220 mg PO DAILY PRN 01/30/13 09/13/23 aspirin 81 mg tablet,delayed 81 mg PO DAILY 08/05/16 09/13/23 release (Aspir-) cyanocobalamin (vitamin B-12) 1,000 mcg PO DAILY 09/14/17 09/13/23 1,000 mcg tablet (Vitamin B-12) carvedilol 12.5 mg tablet 12.5 mg PO BID #180 tabs 11/16/22 09/13/23 simvastatin 20 mg tablet 20 mg PO DAILY #90 tab-caps 11/16/22 09/13/23 fluticasone propionate 50 2 spray intranasal DAILY #16 grams 05/24/23 09/13/23 mcg/actuation nasal spray,suspension doxycycline hyclate 100 mg tablet 100 mg PO BID #14 tabs 11/16/23 Previous Rx's Medication Instructions Recorded carvedilol 12.5 mg tablet 12.5 mg PO BID #180 tabs 11/16/22 simvastatin 20 mg tablet 20 mg PO DAILY #90 tab-caps 11/16/22 fluticasone propionate 50 2 spray intranasal DAILY #16 grams 05/24/23 mcg/actuation nasal spray,suspension doxycycline hyclate 100 mg tablet 100 mg PO BID #14 tabs 11/16/23 Allergies Allergy/AdvReac Type Severity Reaction Status Date / Time Penicillins Allergy Unknown many Verified 11/16/23 14:46 years ago atorvastatin AdvReac Intermediate widespread Verified 11/16/23 14:46 pain Review of Systems All systems reviewed & are unremarkable except as noted in HPI and below Constitutional Constitutional: Denies chills, Denies fever(s) and Denies weakness Cardiovascular Cardiovascular: Denies chest pain and Denies dyspnea Respiratory Respiratory: Reports cough and Denies dyspnea Gastrointestinal Gastrointestinal: Denies abdominal pain, Denies nausea and Denies vomiting Musculoskeletal Musculoskeletal: Denies joint swelling Neurologic Neurologic: Denies weakness PFSH All Active Problems (Updated 11/16/23 @ 16:00 by Leland Alexis MD) COVID (Acute) Cough (Acute) Left renal mass (Acute ~04/2023) 04/22/23 Urology S/P laminectomy with spinal fusion (Acute) Headache (Acute) Vertigo (Acute) Medicare annual wellness visit, subsequent (Acute) Anxiety (Chronic) Other and unspecified hyperlipidemia (Acute 01/26/12) CAD; LDL baseline 151 Memory loss (Acute 03/23/13) 2012 MMSE 27/30 Low back pain (Acute 05/24/13) xray 05/2013 neg DJD; chiropractor Rx MRI 06/01/16 disc herniation L2-3; spinal stenosis L3-4; Dr Burks [facility] Imbalance (Acute 02/27/16) Lumbar stenosis without neurogenic claudication (Chronic) 04/08/22 [facility], Dr Reed, plan for lumbar laminectomy and fusions Gastroesophageal reflux disease (Acute 01/26/12) Essential hypertension, benign (Chronic 08/28/13) Depressive disorder, not elsewhere classified (Chronic 01/26/12) Cough (Acute 09/05/12) spirometry 08/2012 WNL Chronic rhinitis (Acute 01/26/12) Chronic ischemic heart disease, unspecified (Acute 01/26/12) hx ACS ?MA and stent [facility]; neg Holter 06/2014 Cholelithiasis without obstruction (Acute 01/26/12) BPH w/o urinary obs/LUTS (Acute 01/26/12) B12 deficiency (Acute 03/23/13) Surgical History S/P laminectomy (05/25/22) bilateral, L1-2 3, 4-5, posterior lumbar interbody fusion w/ fixation L3-4 Tonsillectomy and adenoidectomy Cholecystectomy Appendectomy Family History Mother , MA at age 82. Essential hypertension Heart disease [place] Father , unknown at age 40. No problems noted. Social History Smoking/Tobacco Use Status: Former Tobacco Use Quit Date: 11/08/77 Tobacco: How many years used: 20 Smoking risk assessment performed?: Yes Alcohol Intake: never Drug use: Never Substance use type: does not use Adopted: No Caregiver/Support person: No Foster care: No Household members: none Housing: house Communication Needs: Corrective Lenses current occupation: retired Pets and animals: No Sexually active: No Current gender identity: male What type of physical activity do you participate in: none Seatbelt use: always Drive intox or ride w/intox livery car driver: No Working smoke detector in home: Yes Carbon monox detector in home: Yes Do you feel safe at home: Yes Do you feel safe in your relationship?: Yes Additional Social history: Grew up in [place], worked in [place], came to [place] through job with [place], mother lived here Lives in [facility] Exam Const General: no acute distress Orientation: alert HENMT Head: normal to inspection Ears: external ears normal General nose exam: external nose normal Mouth: moist mucous membranes Eyes General: appearance normal, both eyes and all related structures Neck Neck: normal visual inspection Resp Effort & Inspection: normal respiratory effort and able to speak in complete sentences Auscultation: clear to auscultation bilaterally Cardio Rate: regular rate Heart Sounds: no murmurs Skin General skin exam: no rashes or lesions noted Neuro General: patient alert and patient oriented x3 Extrem General: normal to inspection Psych Mental Status: mental status grossly normal Course Vital Signs Vital signs: Vital Signs Temperature 36.6 C 11/16/23 14:42 Pulse 57 L 11/16/23 14:42 Respiratory Rate 16 11/16/23 14:42 Blood Pressure 161/51 H 11/16/23 14:42 Pulse Oximetry 97 11/16/23 14:42 Temperature 36.6 C 11/16/23 14:42 Pulse 57 L 11/16/23 14:42 Respiratory Rate 16 11/16/23 14:42 Blood Pressure 161/51 H 11/16/23 14:42 Pulse Oximetry 97 11/16/23 14:42 Oxygen Delivery Method Room Air 11/16/23 14:42 Oxygen Flow Rate 0 11/16/23 14:42 Medical Decision Making 83 yo male with hx of htn, gerd, hld, who comes in with runny nose and cough that he states is improving and started last . Denies chest pain, dyspnea, fevers, chills, low energy. HE is caox4 on arrival speaking clearly in no distress. HAs normal posterior pharynx, midline uvula, no pain over the hyoid, no restricted neck movements and has clear lung sounds, no jvd or leg swelling. Symptoms seem consistent with uri vs bronchitis, no fevers and normal lung exam and appears well so doubt pneumonia. Will check poc covid/flu and if negative consider doxycyline for bronchitis. is covid positive but symptoms over 5 days so not paxlovid candidate and is improving with normal oxygenation.Will place on doxy to cover for possible bronchitis as well, will have him f/u with pcp if symptoms don't resolve and return precautions given Differential Diagnosis Differential Diagnosis: covid, uri, bronchitis Quality:SDOH Health Related Social Needs: No Data to Display Discharge Plan Disposition Patient Disposition: Home Condition: Stable Discharge Details Clinical Impression: Cough, COVID Primary Care Provider: Shayy Poon ED Provider: Leland Alexis [place] Meds and New Rx's Prescriptions: New doxycycline hyclate 100 mg tablet 100 mg PO BID Qty: 14 0RF Continued simvastatin 20 mg tablet 20 mg PO DAILY Qty: 90 3RF carvedilol 12.5 mg tablet 12.5 mg PO BID Qty: 180 3RF Rx Instructions: must administer with a meal/food fluticasone propionate 50 mcg/actuation spray,suspension 2 spray intranasal DAILY Qty: 16 12RF Rx Instructions: administer into each nostril naproxen sodium 220 MG tablet 220 mg PO DAILY PRN cyanocobalamin (vitamin B-12) [Vitamin B-12] 1,000 MCG tablet 1,000 mcg PO DAILY aspirin [Aspir-81] 81 MG tablet,delayed release (DR/EC) 81 mg PO DAILY Discharge Instructions Instructions: COVID-19 (Coronavirus Disease 2019) (ED) Additional Instructions: Your covid and flu tests were negative. Follow up with your primary care provider within 1 week if symptoms continue if you feel more ill, have trouble breathing or fevers return to the emergency department
[2023-11-16 15:45] VITALS: BP 161/51; PULSE 57; RESP 16; TEMP 36.6; O2SAT 97
== END 2023-11-16 16:07 | disposition home or self-care (01) ==
PROVIDERS: Emergency Provider Emergency Medicine; PCP Nurse Practitioner
DX: U07.1 COVID-19 (principal); I10 Essential (primary) hypertension; I25.10 Atherosclerotic heart disease of native coronary artery without angina pectoris; Z79.82 Long term (current) use of aspirin; Z87.891 Personal history of nicotine dependence; Z95.5 Presence of coronary angioplasty implant and graft
CPT/HCPCS: 87426; 87880; 99283; 87081

== ENCOUNTER 2024-05-17 17:02 | Outpatient (REF) | payer MEDICARE, OTHER, SELFPAY | END 2024-05-17 17:03 | disposition home or self-care (01) | LOC: LBN 17:02 | PROVIDERS: PCP Nurse Practitioner; Visit Provider Nurse Practitioner | DX: R10.9 Unspecified abdominal pain (principal) | CPT/HCPCS: 87086 ==

== ENCOUNTER 2024-05-23 15:50 | Outpatient (CLI) | payer MEDICARE, OTHER, SELFPAY ==
[2024-05-23 13:33] LABS: Abs Immature Grans 0.02 10^3/uL (0.0-0.06); Absolute Basophil Count 0.04 10^3/uL (0.0-0.2); Absolute Eosinophil Count 0.38 10^3/uL (0.0-0.7); Absolute Lymphocyte Count 1.68 10^3/uL (1.2-3.4); Absolute Monocyte Count 0.51 10^3/uL (0.1-0.8); Absolute Neutrophil Count 3.47 10^3/uL (1.2-6.7); Basophils % 0.7 %; Eosinophils % 6.2 %; HCT 43.3 % (40.0-50.0); HGB 14.2 g/dL (13.5-17.5); Immature Grans % 0.3 %; Lymphocytes % 27.5 %; MCHC 32.8 % (32.0-36.0); MCV 89 fL (80-95); MPV 9.6 fL (8.0-11.0); Monocytes % 8.4 %; Neutrophils % 56.9 %; Platelet Count 237 10^3/uL (130-400); RBC 4.89 10^6/uL (4.36-5.78); RDW 13.9 % (11.8-14.1)
[2024-05-23 14:21] LABS: ALT 27 U/L (16-63); AST 20 U/L (15-37); Albumin 3.7 g/dL (3.4-5.0); Alkaline Phosphatase 90 U/L (46-116); Anion Gap 10.7 mmol/L (3-11); BUN 27 mg/dL (7-18); Bilirubin, Total 1.36 mg/dL (0.2-1.0); CO2 26.3 mmol/L (21.0-32.0); CREATININE 1.3 mg/dL (0.70-1.30); Calcium 8.8 mg/dL (8.5-10.1); Calculated LDL 49 mg/dL (<100); Chloride 104 mmol/L (98-107); Cholesterol 114 mg/dL (<200); Estimated GFR 54.17 (mL/min/1.73m2); Glucose 99 mg/dL (74-106); HDL Cholesterol 38 mg/dL (40-60); Magnesium 2.1 mg/dL (1.8-2.4); Potassium 4.5 mmol/L (3.5-5.1); Sodium 141 mmol/L (136-145); Total Protein 7.4 g/dL (6.4-8.2); Triglyceride 138 mg/dL (<150)
== END 2024-05-23 15:51 | disposition home or self-care (01) ==
LOC: LBO 15:50
PROVIDERS: PCP Nurse Practitioner; Visit Provider Nurse Practitioner
DX: E78.5 Hyperlipidemia, unspecified (principal); I10 Essential (primary) hypertension; M62.81 Muscle weakness (generalized)
CPT/HCPCS: 36415; 80053; 80061; 83735; 85025

== ENCOUNTER 2024-07-19 02:23 | Outpatient (CLI) | payer MEDICARE, OTHER, SELFPAY ==
--- NOTE | 2024-07-19 | DI.RAD_ITS ---
Exam(s) XR CHEST 2V PA LATERAL EXAM: XR CHEST 2V PA LATERAL CLINICAL HISTORY: LT RENAL MASS,N28.89,? NEW LUNG NODULES TECHNIQUE: 2D digital imaging was performed. Two views. COMPARISON: CR,XR XR PORTABLE CHEST AP from 06/06/2022 FINDINGS: HEART: Normal size. Aorta: Not dilated. PULMONARY VASCULATURE: Normal. MEDIASTINUM: Unremarkable. LUNGS: Clear. No visible lung nodules. PLEURAL SPACE: No pleural effusion or pneumothorax. BONE:Scoliosis and degenerative changes. SOFT TISSUES: Unremarkable. IMPRESSION: No acute abnormality. DATA REPOSITORY: RADIATION DOSE DELIVERED:
== END 2024-07-19 02:43 ==
LOC: DI 02:23
PROVIDERS: PCP Nurse Practitioner; Visit Provider Urology
DX: N28.89 Other specified disorders of kidney and ureter (principal)
CPT/HCPCS: 36415; 80053; 71046

== ENCOUNTER 2024-07-19 03:54 | Outpatient (CLI) | payer MEDICARE, OTHER, SELFPAY ==
[2024-07-19 15:48] LABS: Albumin 3.6 g/dL (3.4-5.0); Alkaline Phosphatase 83 U/L (46-116); BUN 24 mg/dL (7-18); Bilirubin, Total 1.03 mg/dL (0.2-1.0); CO2 23.7 mmol/L (21.0-32.0); CREATININE 1.4 mg/dL (0.70-1.30); Calcium 8.5 mg/dL (8.5-10.1); Chloride 108 mmol/L (98-107); Estimated GFR 49.56 (mL/min/1.73m2); Glucose 107 mg/dL (74-106); Potassium 4.3 mmol/L (3.5-5.1); Sodium 140 mmol/L (136-145); Total Protein 7.1 g/dL (6.4-8.2)
[2024-07-19 15:49] LABS: ALT 25 U/L (16-63); AST 21 U/L (15-37); Anion Gap 8.3 mmol/L (3-11)
== END 2024-07-19 03:55 | disposition home or self-care (01) ==
PROVIDERS: PCP Nurse Practitioner; Visit Provider Nurse Practitioner Family
DX: N28.89 Other specified disorders of kidney and ureter (principal)
CPT/HCPCS: 36415; 80053

== ENCOUNTER → 2024-07-25 09:57 | Outpatient (BNVA) | payer MEDICARE, OTHER, SELFPAY | PROVIDERS: PCP Nurse Practitioner; Referring Provider Nurse Practitioner; Visit Provider Podiatrist | DX: L60.0 Ingrowing nail (principal); B35.1 Tinea unguium; M79.671 Pain in right foot; M79.672 Pain in left foot; I73.9 Peripheral vascular disease, unspecified; L60.3 Nail dystrophy; R09.89 Other specified symptoms and signs involving the circulatory and respiratory systems; R60.0 Localized edema; R23.8 Other skin changes; L65.9 Nonscarring hair loss, unspecified | CPT/HCPCS: 11721; 99214 ==

== ENCOUNTER → 2024-09-11 10:01 | Outpatient (BNVA) | payer MEDICARE, OTHER, SELFPAY | PROVIDERS: PCP Nurse Practitioner; Visit Provider Internal Medicine Cardiovascular Disease | DX: I25.9 Chronic ischemic heart disease, unspecified (principal); I10 Essential (primary) hypertension | CPT/HCPCS: 99213 ==

== ENCOUNTER → 2025-01-22 14:34 | Outpatient (BNVA) | payer MEDICARE, OTHER, SELFPAY | PROVIDERS: PCP Nurse Practitioner; Referring Provider Nurse Practitioner; Visit Provider Registered Nurse | DX: I10 Essential (primary) hypertension (principal); R60.0 Localized edema | CPT/HCPCS: 99214 ==

== ENCOUNTER 2025-02-26 08:42 | Outpatient (CLI) | payer MEDICARE, OTHER, SELFPAY ==
--- NOTE | 2025-02-26 08:30 | RT.EKG_ITS ---
APPROVED REPORT Exam: Resting ECG Reason for Exam: CAD Patient Location: O HR:46 bpm ECG Measurements Heart Rate 46 AXIS GA 164 P 17 QRSd 97 QRS -51 QT 420 T 16 QTc 368 Conclusion Sinus bradycardia...rate< 50 Atrial premature complexes in couplets...pair SV complexes w/ short R-R Inferior infarct, old...Q >35mS, II III aVF
== END 2025-02-26 08:43 | disposition home or self-care (01) ==
LOC: DI.CARD 08:43
PROVIDERS: PCP Nurse Practitioner; Visit Provider Registered Nurse
DX: I25.9 Chronic ischemic heart disease, unspecified (principal); I25.10 Atherosclerotic heart disease of native coronary artery without angina pectoris; R00.1 Bradycardia, unspecified
CPT/HCPCS: 93010

== ENCOUNTER → 2025-02-26 13:30 | Outpatient (BNVA) | payer MEDICARE, OTHER, SELFPAY | PROVIDERS: PCP Nurse Practitioner; Referring Provider Nurse Practitioner; Visit Provider Registered Nurse | DX: R60.0 Localized edema (principal); I10 Essential (primary) hypertension; I25.10 Atherosclerotic heart disease of native coronary artery without angina pectoris | CPT/HCPCS: 93005; 99214 ==

== ENCOUNTER 2025-04-11 09:24 | Outpatient (CLI) | payer MEDICARE, OTHER, SELFPAY ==
[2025-04-11 14:41] LABS: Anion Gap 5.4 mmol/L (3-11); BUN 28 mg/dL (7-18); CO2 29.6 mmol/L (21.0-32.0); CREATININE 1.4 mg/dL (0.70-1.30); Calcium 8.7 mg/dL (8.5-10.1); Chloride 105 mmol/L (98-107); Estimated GFR 49.25 (mL/min/1.73m2); Glucose 124 mg/dL (74-106); Potassium 4.5 mmol/L (3.5-5.1); Sodium 140 mmol/L (136-145)
== END 2025-04-11 09:25 | disposition home or self-care (01) ==
LOC: LBO 09:24
PROVIDERS: PCP Nurse Practitioner; Visit Provider Registered Nurse
DX: R60.9 Edema, unspecified (principal)
CPT/HCPCS: 36415; 80048

== ENCOUNTER 2025-05-18 00:19 | Outpatient (CLI) | payer MEDICARE, OTHER, SELFPAY ==
--- NOTE | 2025-05-18 | DI.CT_ITS ---
Exam(s) CT ABDOMEN WO/W EXAM: CT ABDOMEN WO/W CLINICAL HISTORY: [facility] kidney, [facility] laterality C64.9 hx of renal cancer sp ablation?. TECHNIQUE: Imaging Protocol: Axial computed tomography images with coronal and sagittal reformatted images were created and reviewed CONTRAST MATERIAL: Intravenous: Omnipaque 350 Contrast volume:structured data ml Oral: no COMPARISON: CT CT ABDOMEN WO/W from 03/11/2023 FINDINGS: ABDOMEN: Lung Bases: No acute findings. Liver: Normal density. No measurable mass. Gallbladder and biliary tract: Cholecystectomy. No biliary dilation. Pancreas: Normal density, no abnormal calcifications or inflammatory process. Spleen: Normal. Kidneys: Normal size, contour and axis. No radiodense stones or obstructive uropathy. There is a nonenhancing 2 cm nonenhancing circumscribed lesion at the superior pole of the left kidney in the vicinity of the previously resected mass. There is small fluid collection inferior to this level. Findings could represent development of a mildly hyperdense cyst in the location of the previously resected mass. A cyst is also seen at the upper pole of the right kidney. No suspicious masses seen. Adrenal glands: No masses seen. Bowel: Extensive diverticulosis throughout the colon. No evidence of diverticulitis. Abdominal Aorta: Abdominal portion non-dilated. Lymph nodes: Within normal limits. Bones: Hardware is again noted in the lumbar spine. No suspicious lesions Soft tissues: Unremarkable. IMPRESSION: Status post resection of the previously noted left upper pole renal mass. There is a 2 cm nonenhancing lesion this location which could represent development of a proteinaceous cyst in the surgical site. Continued follow-up recommended. RADIATION DOSE DELIVERED: DATA REPOSITORY: All CT scans at this facility are submitted to the National Radiology Data Registry (NRDR) Dose Index Registry (DIR) with the [employer] (ACR). RADIATION OPTIMIZATION: All CT scans at this facility use at least one of these dose optimization techniques: automated exposure control; mA and/or kV adjustment per patient size (includes targeted exams where dose is matched to clinical indication); or iterative reconstruction.
--- NOTE | 2025-05-18 13:37 | DI.RAD_ITS ---
Exam(s) XR CHEST 2V PA LATERAL EXAM: XR CHEST 2V PA LATERAL CLINICAL HISTORY: [facility]imo [facility]ctor[facility] kidney, [facility] [place] laterality C64.9 hx of renal cancer sp ablation?. TECHNIQUE: 2D digital imaging was performed. COMPARISON: CR XR CHEST 2V PA LATERAL from 07/19/2024 FINDINGS: 2 views: Heart size is normal. The mediastinum is not widened. Lungs are clear. No infiltrates nor pleural effusions. IMPRESSION: No acute pulmonary findings. DATA REPOSITORY: RADIATION DOSE DELIVERED:
[2025-05-18 14:30] LABS: ALT 27 U/L (16-63); AST 17 U/L (15-37); Albumin 3.6 g/dL (3.4-5.0); Alkaline Phosphatase 101 U/L (46-116); Anion Gap 7.7 mmol/L (3-11); BUN 29 mg/dL (7-18); Bilirubin, Total 1.4 mg/dL (0.2-1.0); CO2 27.3 mmol/L (21.0-32.0); Calcium 8.5 mg/dL (8.5-10.1); Chloride 104 mmol/L (98-107); Estimated GFR 53.84 (mL/min/1.73m2); Glucose 120 mg/dL (74-106); Potassium 4.4 mmol/L (3.5-5.1); Sodium 139 mmol/L (136-145); Total Protein 7.0 g/dL (6.4-8.2)
[2025-05-18] MEDS: Normal Saline - Diluent 50 ML VIAL IJ (14:55)
[2025-05-18] MEDS: Omnipaque 350 MG/ML 500 ML BTL-Imaging package IJ (14:57)
== END 2025-05-18 00:39 ==
PROVIDERS: PCP Nurse Practitioner; Visit Provider Urology
DX: C64.9 Malignant neoplasm of unspecified kidney, except renal pelvis (principal); N28.89 Other specified disorders of kidney and ureter
CPT/HCPCS: 80053; 71046; 74170

== ENCOUNTER → 2025-06-06 14:56 | Outpatient (BNVA) | payer MEDICARE, OTHER, SELFPAY | PROVIDERS: PCP Nurse Practitioner; Visit Provider Registered Nurse | DX: I25.9 Chronic ischemic heart disease, unspecified (principal); I10 Essential (primary) hypertension; Z79.02 Long term (current) use of antithrombotics/antiplatelets; Z79.899 Other long term (current) drug therapy | CPT/HCPCS: 99214 ==

== ENCOUNTER 2025-06-18 16:12 | Emergency (ER) | payer MEDICARE, OTHER, SELFPAY ==
[2025-06-18 16:12] VITALS: BP 103/52; PULSE 50; RESP 16; TEMP 36.9; O2SAT 95
--- NOTE | 2025-06-18 16:45 | RT.EKG_ITS ---
APPROVED REPORT Exam: Resting ECG Reason for Exam: hypotension, bradycardic Patient Location: E HR:47 bpm ECG Measurements Heart Rate 47 AXIS CO 168 P 38 QRSd 96 QRS -35 QT 418 T 52 QTc 369 Conclusion Sinus bradycardia...rate< 60 Inferior infarct, old...Q >35mS, II III aVF
[2025-06-18 18:09] VITALS: BP 151/77; PULSE 44; RESP 18; O2SAT 98
[2025-06-18 18:11] VITALS: BP 151/77; PULSE 44; RESP 16; TEMP 36.9; O2SAT 98
[2025-06-18 18:13] VITALS: RESP 18
[2025-06-18 18:20] LABS: Abs Immature Grans 0.01 10^3/uL (0.0-0.06); HCT 41.8 % (40.0-50.0); HGB 13.9 g/dL (13.5-17.5); Immature Grans % 0.2 %; MCH 30.3 pg (27.0-33.0); MCHC 33.3 % (32.0-36.0); MCV 91 fL (80-95); MPV 10.0 fL (8.0-11.0); Platelet Count 221 10^3/uL (130-400); RBC 4.59 10^6/uL (4.36-5.78); RDW 13.4 % (11.8-14.1); RDW-SD 44.6 fL; WBC 6.63 10^3/uL (4.4-10.8)
[2025-06-18 18:43] LABS: Glucose Negative (Negative)
[2025-06-18 18:47] LABS: Troponin I 9 ng/L (<or=76)
[2025-06-18 18:50] LABS: ALT 26 U/L (16-63); AST 21 U/L (15-37); Albumin 3.8 g/dL (3.4-5.0); Alkaline Phosphatase 96 U/L (46-116); Anion Gap 6.0 mmol/L (3-11); BUN 30 mg/dL (7-18); Bilirubin, Total 1.2 mg/dL (0.2-1.0); CO2 29.0 mmol/L (21.0-32.0); Calcium 8.8 mg/dL (8.5-10.1); Chloride 106 mmol/L (98-107); Estimated GFR 45.34 (mL/min/1.73m2); Glucose 106 mg/dL (74-106); Magnesium 2.3 mg/dL (1.8-2.4); Potassium 4.1 mmol/L (3.5-5.1); Sodium 141 mmol/L (136-145); TSH (W/Ref FT4) 2.89 uIU/mL (0.36-3.74); Total Protein 7.3 g/dL (6.4-8.2)
[2025-06-18 18:52] LABS: C & S Indicated? No; WBC 0-2 HPF (0-5)
[2025-06-18 19:40] VITALS: BP 153/67; PULSE 62; RESP 22; TEMP 36.7; O2SAT 99
--- NOTE | 2025-06-18 21:45 | ED.GENADUL_ITS ---
Discharge Plan Disposition Patient Disposition: Home Condition: Stable Discharge Details Clinical Impression: Encounter for blood pressure examination Primary Care Provider: Shayy Poon ED Provider: Rani Lafleur Home Meds and New Rx's Prescriptions: Continued carvedilol 12.5 mg tablet See Rx Instructions .ROUTE .COMPLEX Qty: 180 3RF Dose Instruction: TAKE ONE TABLET BY MOUTH TWICE A DAY - MUST ADMINISTER WITH A MEAL / FOOD Rx Instructions: TAKE ONE TABLET BY MOUTH TWICE A DAY - MUST ADMINISTER WITH A MEAL / FOOD simvastatin 20 mg tablet 20 mg PO DAILY Qty: 90 3RF ceramides 1,3,6-II [CeraVe] Cream 1 applic topical BID PRN (Reason: dry skin legs) Qty: 453 6RF losartan 50 mg tablet 50 mg PO DAILY Qty: 90 3RF fluticasone propionate 50 mcg/actuation spray,suspension 2 spray intranasal DAILY Qty: 16 12RF Rx Instructions: administer into each nostril ketoconazole 2 % cream 1 applic topical DAILY Qty: 120 6RF Rx Instructions: Apply to toenails once daily naproxen sodium 220 MG tablet 220 mg PO DAILY PRN cyanocobalamin (vitamin B-12) [Vitamin B-12] 1,000 MCG tablet 1,000 mcg PO DAILY furosemide [Lasix] 20 mg tablet 40 mg PO DAILY Qty: 180 3RF aspirin [Aspir-81] 81 MG tablet,delayed release (DR/EC) 81 mg PO DAILY Discharge Instructions Additional Instructions: Your blood pressure and heart rate are stable for you Your labs all within normal limits for you Please follow-up with physical therapy per typical schedule and return earlier should you have new or worsening complaints You are cleared for physical therapy based on her assessment today Referrals: Shayy Poon NP [Primary Care Provider, Medicine] HPI General Date/Time Provider Initiated Documentation: 06/18/25 16:16 . HPI Narrative: 84-year-old male with primary renal cell carcinoma, CAD, lumbar stenosis, depression, and cholelithiasis reports low BP from physical therapy. BP was 100 systolic during session, leading to ED referral. Feels tired, attributes to working in hot sun. Denies chest pain, SOB, or weakness. On carvedilol, confirmed dose today. Related Data Home Medications ?Medication ?Instructions ?Recorded ?Confirmed naproxen sodium 220 mg tablet 220 mg PO DAILY PRN 01/0706/15/25 aspirin 81 mg tablet,delayed 81 mg PO DAILY 08/05/16 0 06/15/25 release (Aspir-) cyanocobalamin (vitamin B-12) 1,000 mcg PO DAILY 09/1406/15/25 1,000 mcg tablet (Vitamin B-12) fluticasone propionate 50 2 spray intranasal DAILY #16 grams 05/24/23 06/15/25 mcg/actuation nasal spray,suspension ketoconazole 2 % topical cream 1 applic topical DAILY #120 grams 07/25/24 06/15/25 carvedilol 12.5 mg tablet See Rx Instructions .Route 0 12/12/24 06/15/25 .COMPLEX #180 tabs ceramides 1,3,6-II (CeraVe topical 1 applic topical BI D PRN dry skin 12/12/24 06/15/25 cream) legs #453 grams simvastatin 20 mg tablet 20 mg PO DAILY #90 tab-caps 12/12/24 06/15/25 losartan 50 mg tablet 50 mg PO DAILY #90 tabs 01/0606/15/25 furosemide 20 mg tablet (Lasix) 40 mg (2 x 20 mg) PO D AILY #180 04/09/25 06/15/25 tabs Previous Rx's ?Medication ?Instructions ?Recorded fluticasone propionate 50 2 spray intranasal DAILY #16 grams 05/24/23 mcg/actuation nasal spray,suspension ketoconazole 2 % topical cream 1 applic topical DAILY #120 grams 07/25/24 carvedilol 12.5 mg tablet See Rx Instructions .Route 0 12/12/24 .COMPLEX #180 tabs ceramides 1,3,6-II (CeraVe topical 1 applic topical BI D PRN dry skin 12/12/24 cream) legs #453 grams simvastatin 20 mg tablet 20 mg PO DAILY #90 tab-caps 12/12/24 losartan 50 mg tablet 50 mg PO DAILY #90 tabs 01/06 06/01 furosemide 20 mg tablet (Lasix) 40 mg (2 x 20 mg) PO D AILY #180 04/09/25 tabs Allergies Allergy/AdvReac Type Severity Reaction Status Date / Time Penicillins Allergy Unknown many Verified 06/18/25 16:22 years ago atorvastatin AdvReac Intermediate widespread Verified 06/18/25 16:22 pain General Stated Complaint: GenMedical VIELKA: 3 Exam Narrative Exam Narrative: General Appearance: Alert and oriented, no acute distress. Vital signs: Bradycardia. HEENT: Within normal limits. Respiratory: Lungs clear. Cardiovascular: Gastrointestinal: Genitourinary: Lymphatic: Back, Musculoskeletal: Extremities: 1+ edema in BLE. Skin: Warm and dry, no rash. Neurological: Normal. Psychiatric: Other observations: steady gait. Course Vital Signs Vital signs: Vital Signs Temperature 36.9 C 06/18/25 16:12 Pulse 50 L 06/18/25 16:12 Respiratory Rate 16 06/18/25 16:12 Blood Pressure 103/52 L 06/18/25 16:12 Pulse Oximetry 95 06/18/25 16:12 Temperature 36.7 C 06/18/25 19:40 Temperature Source Oral 06/18/25 18:11 Pulse 62 06/18/25 19:40 Respiratory Rate 22 06/18/25 19:40 Respiratory Effort Normal, Non-Labored 06/18/25 18:13 Respiratory Depth Normal 06/18/25 18:13 Respiratory Pattern Normal 06/18/25 18:13 Blood Pressure 153/67 H 06/18/25 19:40 Blood Pressure Mean 101 06/18/25 18:09 Blood Pressure Position Supine 06/18/25 18:11 Pulse Oximetry 99 06/18/25 19:40 Oxygen Delivery Method Room Air 06/18/25 18:11 Oxygen Flow Rate 0 06/18/25 18:09 Pain Level 0 06/18/25 19:40 Comment manual BP 140/80 06/18/25 18:09 Lab/Test Results Lab/Test Results: Laboratory Tests Range/Units 06/18/25 06/18/25 06/18/25 18:05 18:21 18:32 WBC (4.4-10.8) 10^3/uL 6.63 RBC (4.36-5.78) 10^6/uL 4.59 Hgb (13.5-17.5) g/dL 13.9 Hct (40.0-50.0) % 41.8 MCV (80-95) fL 91 MCH (27.0-33.0) pg 30.3 MCHC (32.0-36.0) % 33.3 RDW (11.8-14.1) % 13.4 Plt Count (130-400) 10^3/uL 221 MPV (8.0-11.0) fL 10.0 Immature Gran % % 0.2 Neutrophils % % 66.4 Lymphocytes % % 18.4 Monocytes % % 8.6 Eosinophils % % 5.6 Basophils % % 0.8 Nucleated RBC % (0.0-0.3) % 0.0 Absolute Neutrophils (1.2-6.7) 10^3/uL 4.41 Absolute Lymphocytes (1.2-3.4) 10^3/uL 1.22 Absolute Monocytes (0.1-0.8) 10^3/uL 0.57 Absolute Eosinophils (0.0-0.7) 10^3/uL 0.37 Absolute Basophils (0.0-0.2) 10^3/uL 0.05 Sodium (136-145) mmol/L 141 Potassium (3.5-5.1) mmol/L 4.1 Chloride (98-107) mmol/L 106 Carbon Dioxide (21.0-32.0) mmol/L 29.0 Anion Gap (3-11) mmol/L 6.0 BUN (7-18) mg/dL 30 H Creatinine (0.70-1.30) mg/dL 1.5 H Est GFR (CKD-EPI 2020) (mL/min/1.73m2) 45.34 Glucose (74-106) mg/dL 106 Calcium (8.5-10.1) mg/dL 8.8 Magnesium (1.8-2.4) mg/dL 2.3 Total Bilirubin (0.2-1.0) mg/dL 1.2 H AST (15-37) U/L 21 ALT (16-63) U/L 26 Alkaline Phosphatase (46-116) U/L 96 Troponin I (<or=76) ng/L 9 Cancelled Total Protein (6.4-8.2) g/dL 7.3 Albumin (3.4-5.0) g/dL 3.8 TSH (0.36-3.74) uIU/mL 2.89 Urine Color (Yellow) Yellow Urine Clarity (Clear) Clear Urine pH (5-8) 6.0 Ur Specific [place] (1.005-1.025) 1.010 Urine Protein (Neg-Trace) mg/dL Negative Urine Ketones (Negative) mg/dL Negative Urine Blood (Negative) Trace-intact H Urine Nitrite (Negative) Negative Urine Bilirubin (Negative) Negative Urine Urobilinogen (Up to 0.2) mg/dL 0.2 Ur Leukocyte Esterase (Negative) Negative Urine RBC (0-2) HPF 3-5 H Urine WBC (0-5) HPF 0-2 Ur Epithelial Cells (Negative) HPF Rare Urine Crystals (Negative) HPF Negative Urine Bacteria (Negative) HPF Rare Urine Casts (Negative) LPF Negative Urine Mucus (Negative) Negative Ur Culture Indicated? No Urine Glucose (Negative) mg/dL Negative Medical Decision Making - Laboratory Studies: - CBC: WNL - BUN: 38 - Creatinine: 1.5 - UA: shows RBCs, unchanged from prior - EKG: - Bradycardia without block Initial Assessment: 84-year-old male with primary renal cell carcinoma, CAD, lumbar stenosis, depression, and cholelithiasis. Presented with low BP. Feels tired, denies chest pain, SOB, or weakness. On carvedilol. Differential Diagnosis: - Hypotension: Negative orthostatics. Stable for discharge. Continue current meds. Discuss carvedilol with PCP. - Bradycardia: EKG shows bradycardia without block. Consider adjusting carvedilol dosage. ED Course: - CBC, CMP, thyroid, and troponin reassuring. - BUN 38, creatinine 1.5, consistent with prior. - UA shows RBCs, unchanged from prior. - Orthostatics negative. - BP 150/60 manually and on monitor at discharge. Final Assessment: Patient stable for discharge. Continue current medications. Discuss carvedilol with PCP for possible dosage adjustment or switch to different antihypertensive. Clinical Impression: - episodic Hypotension - Bradycardia Disposition: - Discharge: Home. Return if new or worsening symptoms. - Follow-Up: Discuss carvedilol with PCP. Patient Education: Discuss carvedilol with PCP. Seek immediate medical attention if new symptoms arise or worsen. MDM Components Evaluation: - Number of Differential Diagnoses or Management Options: Hypotension, Bradycardia - Amount and Complexity of Data Reviewed: CBC, CMP, thyroid, troponin, BUN, creatinine, UA, EKG - Risk of Complication and Morbidity or Mortality: Potential complications from hypotension and bradycardia. Monitoring and possible adjustment of carvedilol dosage. PFSH All Active Problems (Updated 06/18/25 @ 19:27 by FLAQUITO Toscano) Encounter for blood pressure examination (Acute) Tinea corporis (Acute) CAD (coronary artery disease) (Chronic) Primary renal cell carcinoma of left kidney (Acute ~08/2024) 09/07/[address] Smalls [facility] Nail dystrophy (Acute) PVD (peripheral vascular disease) (Chronic) Pain in both feet (Acute) Onychomycosis (Acute) COVID (Acute) Left renal mass (Acute ~04/2023) 04/22/23 Urology 12/17/23 F/U with Dr Mann 08/04/24 F/u w Dr Mann S/P laminectomy with spinal fusion (Acute) Headache (Acute) Vertigo (Acute) Medicare annual wellness visit, subsequent (Acute) Anxiety (Chronic) Other and unspecified hyperlipidemia (Acute 01/26/12) CAD; LDL baseline 151 Memory loss (Acute 03/23/13) 2012 MMSE Low back pain (Acute 05/24/13) xray 05/2013 neg DJD; chiropractor Rx MRI 06/01/16 disc herniation L2-3; spinal stenosis L3-4; Dr Burks [facility] 07/14/24 [facility] Imbalance (Acute 02/27/16) Lumbar stenosis without neurogenic claudication (Chronic) 04/08/22 [facility], Dr Reed, plan for lumbar laminectomy and fusions Gastroesophageal reflux disease (Acute 01/26/12) Essential hypertension, benign (Chronic 08/28/13) Depressive disorder, not elsewhere classified (Chronic 01/26/12) Cough (Acute 09/05/12) spirometry 08/2012 WNL Chronic rhinitis (Acute 01/26/12) Chronic ischemic heart disease, unspecified (Acute 01/26/12) hx ACS ?HI and stent [facility]; neg Holter 06/2014 Cholelithiasis without obstruction (Acute 01/26/12) BPH w/o urinary obs/LUTS (Acute 01/26/12) B12 deficiency (Acute 03/23/13) Surgical History S/P laminectomy (05/25/22) bilateral, L1-2 3, 4-5, posterior lumbar interbody fusion w/ fixation L3-4 Tonsillectomy and adenoidectomy Cholecystectomy Appendectomy Family History Mother , [place] at age 82. Essential hypertension Heart disease HI Father , unknown at age 40. No problems noted. 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
== END 2025-06-18 19:40 | disposition home or self-care (01) ==
PROVIDERS: Emergency Provider Physician Assistant; PCP Nurse Practitioner
DX: Z01.30 Encounter for examination of blood pressure without abnormal findings (principal); R53.83 Other fatigue; Z86.79 Personal history of other diseases of the circulatory system; Z85.528 Personal history of other malignant neoplasm of kidney
CPT/HCPCS: 99283; 99284; 36415; 80053; 93005; 81003; 81015; 83735; 84443; 84484; 85025; 93010

== ENCOUNTER 2025-06-28 11:03 | Outpatient (CLI) | payer MEDICARE, OTHER, SELFPAY ==
--- NOTE | 2025-06-28 11:00 | RT.EKG_ITS ---
APPROVED REPORT Exam: Resting ECG Reason for Exam: bradycardia Patient Location: O HR:44 bpm ECG Measurements Heart Rate 44 AXIS NE 171 P 20 QRSd 95 QRS -51 QT 431 T 35 QTc 369 Conclusion Sinus bradycardia...rate< 50 Atrial premature complexes...SV complexes w/ short R-R intvls Inferior infarct, old...Q >35mS, II III aVF
== END 2025-06-28 11:04 | disposition home or self-care (01) ==
LOC: DI.KIM 11:04
PROVIDERS: PCP Nurse Practitioner; Visit Provider Family Medicine
DX: I49.9 Cardiac arrhythmia, unspecified (principal); R00.1 Bradycardia, unspecified
CPT/HCPCS: 93010

== ENCOUNTER 2025-07-12 13:14 | Outpatient (RCR) | payer MEDICARE, OTHER, SELFPAY ==
--- NOTE | 2025-07-17 09:17 | W.HOLTRPT ---
Date of service: 07/17/25 Time of Service: 09:17 Holter Monitor Report Referring Provider:: Eduard Kirkland Indications:: Bradycardia Holter Monitor Note: This is a 48-hour Holter monitor. Rhythm throughout was sinus with an average heart rate overall of 53. Minimum was 35, maximum 112 There were very rare isolated atrial premature beats. There were occasional atrial premature beats. There was no atrial fibrillation, no high-grade AV block, no pauses greater than 3 seconds No symptoms were reported
== END 2025-08-07 23:59 | disposition home or self-care (01) ==
LOC: CARDOPNVT 13:14
PROVIDERS: PCP Nurse Practitioner; Visit Provider Family Medicine
DX: R00.1 Bradycardia, unspecified (principal)
CPT/HCPCS: 93227; 93225; 93226

== ENCOUNTER → 2025-07-30 13:59 | Outpatient (BNVA) | payer MEDICARE, OTHER, SELFPAY | PROVIDERS: PCP Nurse Practitioner; Referring Provider Nurse Practitioner; Visit Provider Registered Nurse | DX: I25.9 Chronic ischemic heart disease, unspecified (principal); R00.1 Bradycardia, unspecified; I10 Essential (primary) hypertension | CPT/HCPCS: 99214 ==

== ENCOUNTER 2025-08-20 02:25 | Outpatient (CLI) | payer MEDICARE, OTHER, SELFPAY ==
--- NOTE | 2025-08-20 13:30 | DI.US_ITS ---
APPROVED REPORT EXAM: Comprehensive 2D, Doppler, and color-flow Echocardiogram Patient Location: Out-Patient Optometry Professor: Leeann Thompson RDCS (AE) Indications: Increased fatigue and SOB, Inf IA, Sinus bradycardia Other Information Study Quality: Good. Technically limited study due to body habitus. Conclusion Normal left ventricular wall thickness and chamber size. Ejection fraction is 55 to 60%. There are no segmental wall motion abnormalities Normal right ventricular size and function Both atria are normal in size There are no structural valvular abnormalities Mild mitral and tricuspid regurgitation Very mildly dilated aortic root and ascending aorta Wall motion Left Ventricle The left ventricle is normal size. The left ventricular systolic function is normal. The left ventricular ejection fraction is within the normal range. There is normal left ventricular wall thickness. There is normal LV segmental wall motion. There is no ventricular septal defect visualized. LVEF is 58%. Right Ventricle The right ventricle is normal size. The right ventricular systolic function is normal. Atria The left atrium size is normal. The right atrium size is normal. The interatrial septum is intact with no evidence for an atrial septal defect. Aortic Valve The aortic valve is normal in structure. Aortic valve is trileaflet. There is no aortic valvular stenosis. No aortic regurgitation is present. Mitral Valve The mitral valve is normal in structure. No evidence of mitral valve stenosis. Mild mitral regurgitation. Tricuspid Valve The tricuspid valve is normal in structure. There is no tricuspid valve stenosis. Mild tricuspid regurgitation. The RVSP is 33.1 mmHg. Pulmonic Valve The pulmonary valve is normal in structure. There is no pulmonic valvular stenosis. Mild pulmonic regurgitation. Great Vessels Aortic root is mildly dilated. The ascending aorta is mildly dilated. Aortic arch is not well visualized. The IVC collapses <50% with inspiration. Pericardium There is no pericardial effusion. 2D Dimensions IVSD d PLAX 1.14 cm M: 0.6-1.2 Ao Root d 3.82 cm M: 3.1 - 3.7 LVPW d PLAX 1.08 cm M: 0.6 - 1.2 Ao Asc Diam d 3.50 cm M: 2.6 - 3.4 LVID d PLAX 4.00 cm M: 4.2 - 5.8 LVDs 2.80 cm M: 2.5 - 4.0 LV EF Teichholz 59.0 % FS 30.83 % LV EDV (Teich) 69.3 mL LV ESV (Teich) 28.4 mL M-Mode TAPSE 2.79 cm (M/F) >1.7 Auto EF LV EDV A4C 86.6 mL LV EDV A2C 90.8 mL LV EDV BP 89.4 mL LV ESV A4C 37.7 mL LV ESV A2C 37.7 mL LV ESV BP 37.3 mL LVEF(%) A4C 56.5 % LVEF(%) A2C 58.5 % LVEF(%) BP 58.3 % LV SV A4C 48.9 ml LV SV A2C 53.2 ml LV SV BP 52.1 ml LV CO A4C 2.3 L/min LV CO A2C 3.3 L/min LV CO BP 2.8 L/min HR A4C 47.94 BPM HR A2C 61.54 BPM LV EDV Index (BP) LA Volume LA Length A4C 3.7 cm LA Length A2C 5.2 cm LA Area A4C s 10.92 cm2 LA Area A2C s 14.92 cm2 LA Vol A4C A-L 27.31 mL LA Vol A2C A-L 36.29 mL LA Vol Biplane A-L 37.3 mL LA Vol/BSA A4C A-L LA Vol/BSA A2C A-L LA Vol/BSA BP A-L 19.5 mL/m2 LA Vol A4C MOD 25.1 mL LA Vol A2C MOD 32.0 mL LA Vol BP MOD 33.5 mL RA Volume RA Area A4C 14.2 cm2 RA ESV A4C (A-L) 35.9mL RA Vol/BSA A4C A-L RA Length A4C 4.8 cm RA ESV A4C (MOD) 34.6mL LV Diastology MV E' medial 0.077 (>0.07 m/s) MV E Vmax 0.75 (0.4-1.3 m/s) MV E/E' MED 9.76 (<14) MV A Vmax 0.90 (0.4-1.3 m/s) MV E' lateral 0.071 (>0.1 m/s) E/A Ratio 0.8 MV E/E' LAT 10.49 (<14) MV E' Average 0.074 m/s MV E/E'(average) 10.11 Aortic Valve AoV Vmax 1.29 m/s LVOT Vmax 0.97 m/s AoV Peak Grad 6.6 mmHg LVOT Peak Grad 3.8 mmHg AoV Area (Vmax) 2.18 cm2 LVOT VTI 0.219 m AoV VTI 0.314 m LVOT Mean Grad 2.0 mmHg AoV Mean Tarun. 0.86 m/s LVOT SV 63.21 mL AoV Mean Grad 3.4 mmHg LVOT Diam s 1.90 cm AoV Area (VTI) 2.01 cm2 AV Regurg Peak Gr. 6.64 mmHg Velocity Ratio 0.75 Mitral Valve MV DT 233 (160-240 msec) MV Vmax TIPS 0.79 m/s MV Mean Grad 0.8 (<2mmHg) MV VTI 0.373 m Pulmonary Valve PV Vmax 0.85 (0.5-1.5 m/s) RVOT Vmax 0.50 m/s PV Peak Grad 2.9 mmHg RVOT Peak Gr. 1.0 mmHg PV Mean Tarun 0.61 m/s RVOT VTI 0.120 m PV Mean Grad 1.8 mmHg RVOT Mean Gr. 0.6 mmHg Tricuspid Valve RA Pressure 8.00 mmHg TR Vmax 2.50 m/s TV S' 0.18 m/s TR Peak Grad 25.0 mmHg RVSP (TR) 33.1 mmHg
== END 2025-08-20 02:45 ==
LOC: DI 02:26
PROVIDERS: PCP Nurse Practitioner; Visit Provider Nurse Practitioner Family
DX: I21.19 ST elevation (STEMI) myocardial infarction involving other coronary artery of inferior wall (principal); R00.1 Bradycardia, unspecified; I08.0 Rheumatic disorders of both mitral and aortic valves
CPT/HCPCS: 93306